=== PATIENT | female | born 1955 | race Caucasian/White ===

== ENCOUNTER 2019-03-15 19:50 | Inpatient (IN) ==
[2019-03-15] MEDS ORDERED: IPRATROPIUM/ALBUTEROL 3 ML AMPUL.NEB NEB ONE (20:15)
[2019-03-15] MEDS ORDERED: 0.9 % SODIUM CHLORIDE 500 ML IV ONE (20:15)
--- NOTE | 2019-03-15 20:19 | Emergency Department Note ---
General Adult HPI - General Chief complaint: Anxiety Stated complaint: withdrawl from ETOH Time Seen by Provider: 03/15/19 20:02 Source: patient Mode of arrival: wheelchair Limitations: no limitations - History of Present Illness HPI Narrative: 63-year-old female patient brought in the emergency department via ambulance requesting help to stop drinking alcohol. Patient admits to a longstanding history of alcoholism. She has a hard time quantitating how much alcohol she drinks during the day. She recently finished 1/5 of whiskey last night. She is unsure when her actual last drink of alcohol was. She answers affirmative to all 4 CAGE questions. She denies recent illness, fevers, sweats, chills. She admits to sinus congestion and runny nose. She denies productive cough. She admits to shortness of breath and a diagnosis of COPD. She has used a nebulizer in the past. She quit smoking approximately 6 years ago. She denies retrosternal chest pain or palpitations. She admits to moderate abdominal pain. She denies nausea or vomiting. She admits to fecal incontinence today. She denies hematemesis, hematochezia, or hematuria. She denies dysuria. She admits to generalized anxiousness. She denies focal weakness. A review of her active problems shows the following: Gastritis, borderline diabetes, history of cataracts, history of ERCP, history of cholecystectomy, hepatitis C, tubular adenoma of colon, GERD, hyperlipidemia, history of tobacco use, polymyalgia rheumatica, hypertension, allergic rhinitis, COPD, and alcohol abuse. - Related Data Home Medications Medication Instructions Recorded Confirmed Aspirin [Alona Chewable Aspirin] 81 mg PO QDAY 10/05/14 10/15/18 budesonide-formoterol HFA 160 1 puff INHALATION Q12H g 06/18/18 10/15/18 mcg-4.5 mcg/actuation aerosol inhaler metformin 850 mg tablet 850 mg PO QPM tab 06/18/18 10/15/18 pantoprazole 40 mg tablet,delayed 40 mg PO QDAY 10/29/18 10/29/18 release Previous Rx's Medication Instructions Recorded ipratropium-albuterol 0.5 mg-3 3 ml INHALATION Q6H PRN #90 ml 08/15/17 mg(2.5 mg base)/3 mL nebulization soln varicella-zoster [id number] (PF) 50 0.5 ml IM ONCE #1 each 06/18/18 mcg/0.5 mL IM francisco j renato Sucralfate [Carafate] 1 gm PO 1HRACHS #60 tab 06/29/18 losartan 100 mg tablet 50 mg PO QDAY 90 Days #45 tab 09/12/18 amlodipine 5 mg tablet 5 mg PO QDAY 90 Days #90 tab 10/07/18 sertraline 50 mg tablet 50 mg PO QDAY #30 tab 10/15/18 ipratropium 20 mcg-albuterol 100 1 puff INHALATION QID #15 g 12/03/18 mcg/actuation mist for inhalation Ventolin HFA 90 mcg/actuation 2 puff INHALATION Q6H PRN #8 g NS 12/27/18 aerosol inhaler montelukast 10 mg tablet 10 mg PO QPM #90 tab 12/31/18 Allergies Allergy/AdvReac Type Severity Reaction Status Date / Time lisinopril Allergy Unknown Swelling Verified 10/15/18 13:19 of Lip/Tongue/Throat lorazepam Allergy Unknown aggressive Verified 10/15/18 13:19 gabapentin AdvReac Intermediate Dizziness Verified 10/15/18 13:19 Review of Systems All systems ED: reviewed and negative except as stated. 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 Patient is in obvious respiratory distress with tripod position and pursed lip breathing.) Head: atraumatic, normocephalic Eye: Present: normal appearance, PERRL, EOMI. Absent: scleral icterus, conjunctival injection, nystagmus ENT: Present: normal oropharynx, mucous membranes moist Neck: Present: trachea midline. Absent: lymphadenopathy, thyromegaly Chest: Present: symmetric chest wall rise Respiratory: Present: respiratory distress, accessory muscle use, prolonged expiratory phase, decreased breath sounds, other (Patient tachypneic with pursed lip breathing. Oxygen saturations 94% on 6 L of oxygen via nasal cannula.). Absent: rales/crackles, wheezes Cardiovascular: Present: normal rhythm, tachycardia, other (Worsening shortness of breath with the patient lay supine.). Absent: systolic murmur, diastolic murmur Abdominal: Present: soft, tenderness, guarding, hyperactive bowel sounds. Absent: distention, rebound, rigidity, organomegaly, mass Abdominal tenderness: Present: RUQ, moderate Extremities: Present: normal inspection, full ROM. Absent: normal capillary r efill (Capillary refill), pedal edema, calf tenderness Back: Present: full ROM. Absent: tenderness Neurological: Present: alert, oriented X3, normal gait, reflexes normal, other. Absent: motor sensory deficit Psychiatric: Present: agitated, anxious Skin: Present: cool, dry, pallor Course Course Narrative: Patient was brought into the emergency department and a history and physical exam was performed. Patient is in obvious respiratory distress. She was given DuoNeb treatment x1. Laboratory studies were drawn including VBG. Two-view chest x-ray was obtained and reviewed. Ultrasound of her abdomen with focus on the right upper quadrant was ordered and reviewed. Patient was given normal saline 500 mL as a bolus. A review of her laboratory studies show the following: CBC 0.1, RBC 4.11, hemoglobin 9.8, hematocrit 37.0, granulocyte percent 85.2, granulocyte #11.2. CMP chloride 93, CO2 35, all others within normal limits. Lipase 11. Venous blood gas showing pH 7.24, PCO2 103, PO2 47, HCO3 43.1, total CO2 46.3, O2 saturation 78.9. Lactic acid 1.2. Blood alcohol less than 0.010. Chest x-ray showed ongoing COPD changes and flattened diaph ragm. No acute pulmonary infiltrate was noted. Ultrasound of the right upper quadrant showed no cirrhotic changes to her liver. After reviewing all the data an ABG was ordered. BiPAP at 20/5 cm H2O was ordered. ABG results shows pH 7.31, PCO2 92, PO2 90, HCO3 46.3. At shift change I discussed the patient's case with my collaborating physician (Dr. Winters). At this time patient is suffering considerable COPD exacerbation and and is likely going to require hospitalization. Dr. Winters is assumed patient care at this point. He will discussed the case with the hospitalist and likely the patient admitted this evening. I am going to order a sedative prior to the BiPAP being started. Patient was given diphenhydramine 25 mg IVP prior to BiPAP. All further treatment decisions and modalities will be carried out by Dr. Winters. Vital Signs Temperature 96.9 F L 03/15/19 19:51 Pulse Rate 120 H 03/15/19 19:51 Respiratory Rate 18 03/15/19 19:51 Blood Pressure 140/80 03/15/19 19:51 Pulse Oximetry (%) 94 03/15/19 19:51 Temperature 96.9 F L 03/15/19 19:51 Pulse Rate 97 H 03/15/19 22:01 Respiratory Rate 20 03/15/19 20:47 Blood Pressure 158/71 03/15/19 22:01 Pulse Oximetry (%) 100 03/15/19 22:01 Medical Decision Making - Lab Data Lab results reviewed: Yes I reviewed the patient's lab results. Result diagrams: 03/15/19 20:25 03/15/19 20:25 Lab Results 03/15/19 03/15/19 03/15/19 Range/Units 20:25 20:25 20:25 WBC 13.1 H (4.5-11.0) K/mcL RBC 4.11 (4.00-5.20) M/mcL Hgb 11.8 L (12.0-15.0) g/dL Hct 37.0 (36.0-48.0) % MCV 90.0 (80.0-100.0) fL MCH 28.8 (26.0-34.0) pg MCHC 32.0 (31.0-36.0) g/dL RDW 14.3 (11.5-14.5) % Plt Count 335 (140-440) K/mcL MPV 7.7 (7.4-10.4) fL Gran % 85.2 H (38.0-78.0) % Lymph % (Auto) 9.4 L (15.5-49.0) % Baker % (Auto) 4.9 (1.0-12.0) % Eos % (Auto) 0.2 (0.0-7.0) % Baso % (Auto) 0.3 (0.0-2.0) % Gran # 11.2 H (1.8-8.0) K/mcL Lymph # (Auto) 1.2 L (1.5-4.8) K/mcL Baker # (Auto) 0.6 (0.1-0.9) K/mcL Eos # (Auto) 0 (0.0-0.7) K/mcL Baso # (Auto) 0 (0.0-0.3) K/mcL Patient Temperature ABG pH ABG pH (Temp Correct) ABG pCO2 ABG pCO2 (Temp Corrct ABG pO2 ABG pO2 (Temp Correct ABG HCO3 ABG Total CO2 ABG O2 Saturation ABG Base Excess ABG Methemoglobin VBG pH (7.32-7.42) U VBG pCO2 (41.0-51.0) mmHg VBG pO2 (25-40) mmHg VBG HCO3 (24.0-28.0) mmol/L VBG Total CO2 (25.0-29.0) mmol/L VBG O2 Saturation (40.0-70.0) % VBG Base Excess (-2.0-2.0) VBG Lactic Acid (0.5-2.0) mmol/L Carboxyhemoglobin Total Hemoglobin Respiration Rate O2 Delivery Method O2 Delivery Level Vent Mode FiO2 Tidal Volume PEEP Sodium 142 (133-145) mmol/L Potassium 5.0 (3.3-5.1) mmol/L Chloride 93 L (96-108) mmol/L Carbon Dioxide 35 H (22-30) mmol/L Anion Gap 14.0 (8-16) BUN 23 (8-23) mg/dl Creatinine 0.6 (0.6-1.1) mg/dl GFR Calculation 96 Glucose 85 (70-105) mg/dL Calcium 9.0 (8.6-10.4) mg/dl Total Bilirubin 0.2 (0.0-1.0) mg/dL AST 28 (0-37) U/l ALT 22 (0-40) U/l Alkaline Phosphatase 71 (39-117) U/L Total Protein 7.1 (5.9-8.4) gm/dL Albumin 3.9 (3.2-5.2) gm/dL Globulin 3.2 (2.2-3.7) gm/dL Albumin/Globulin Ratio 1.2 (1.0-2.3) Lipase 11 (7-60) U/L Procalcitonin < 0.05 (<0.10) ng/mL Ethyl Alcohol (<0.010) gm/dl 03/15/19 03/15/19 03/15/19 Range/Units 20:25 20:25 20:35 WBC (4.5-11.0) K/mcL RBC (4.00-5.20) M/mcL Hgb (12.0-15.0) g/dL Hct (36.0-48.0) % MCV (80.0-100.0) fL MCH (26.0-34.0) pg MCHC (31.0-36.0) g/dL RDW (11.5-14.5) % Plt Count (140-440) K/mcL MPV (7.4-10.4) fL Gran % (38.0-78.0) % Lymph % (Auto) (15.5-49.0) % Baker % (Auto) (1.0-12.0) % Eos % (Auto) (0.0-7.0) % Baso % (Auto) (0.0-2.0) % Gran # (1.8-8.0) K/mcL Lymph # (Auto) (1.5-4.8) K/mcL Baker # (Auto) (0.1-0.9) K/mcL Eos # (Auto) (0.0-0.7) K/mcL Baso # (Auto) (0.0-0.3) K/mcL Patient Temperature Not Reportable ABG pH TNP ABG pH (Temp Correct) Not Reportable ABG pCO2 TNP ABG pCO2 (Temp Corrct Not Reportable ABG pO2 TNP ABG pO2 (Temp Correct Not Reportable ABG HCO3 TNP ABG Total CO2 TNP ABG O2 Saturation TNP ABG Base Excess TNP ABG Methemoglobin TNP VBG pH (7.32-7.42) U VBG pCO2 (41.0-51.0) mmHg VBG pO2 (25-40) mmHg VBG HCO3 (24.0-28.0) mmol/L VBG Total CO2 (25.0-29.0) mmol/L VBG O2 Saturation (40.0-70.0) % VBG Base Excess (-2.0-2.0) VBG Lactic Acid 1.2 (0.5-2.0) mmol/L Carboxyhemoglobin TNP Total Hemoglobin TNP Respiration Rate Not Reportable O2 Delivery Method Not Reportable O2 Delivery Level Not Reportable Vent Mode Not Reportable FiO2 Not Reportable Tidal Volume Not Reportable PEEP Not Reportable Sodium (133-145) mmol/L Potassium (3.3-5.1) mmol/L Chloride (96-108) mmol/L Carbon Dioxide (22-30) mmol/L Anion Gap (8-16) BUN (8-23) mg/dl Creatinine (0.6-1.1) mg/dl GFR Calculation Glucose (70-105) mg/dL Calcium (8.6-10.4) mg/dl Total Bilirubin (0.0-1.0) mg/dL AST (0-37) U/l ALT (0-40) U/l Alkaline Phosphatase (39-117) U/L Total Protein (5.9-8.4) gm/dL Albumin (3.2-5.2) gm/dL Globulin (2.2-3.7) gm/dL Albumin/Globulin Ratio (1.0-2.3) Lipase (7-60) U/L Procalcitonin (<0.10) ng/mL Ethyl Alcohol < 0.010 (<0.010) gm/dl 03/15/19 Range/Units 21:15 WBC (4.5-11.0) K/mcL RBC (4.00-5.20) M/mcL Hgb (12.0-15.0) g/dL Hct (36.0-48.0) % MCV (80.0-100.0) fL MCH (26.0-34.0) pg MCHC (31.0-36.0) g/dL RDW (11.5-14.5) % Plt Count (140-440) K/mcL MPV (7.4-10.4) fL Gran % (38.0-78.0) % Lymph % (Auto) (15.5-49.0) % Baker % (Auto) (1.0-12.0) % Eos % (Auto) (0.0-7.0) % Baso % (Auto) (0.0-2.0) % Gran # (1.8-8.0) K/mcL Lymph # (Auto) (1.5-4.8) K/mcL Baker # (Auto) (0.1-0.9) K/mcL Eos # (Auto) (0.0-0.7) K/mcL Baso # (Auto) (0.0-0.3) K/mcL Patient Temperature ABG pH ABG pH (Temp Correct) ABG pCO2 ABG pCO2 (Temp Corrct ABG pO2 ABG pO2 (Temp Correct ABG HCO3 ABG Total CO2 ABG O2 Saturation ABG Base Excess ABG Methemoglobin 0.3 L VBG pH 7.24 L (7.32-7.42) U VBG pCO2 103.0 H* (41.0-51.0) mmHg VBG pO2 47 H (25-40) mmHg VBG HCO3 43.1 H* (24.0-28.0) mmol/L VBG Total CO2 46.3 H* (25.0-29.0) mmol/L VBG O2 Saturation 78.9 H (40.0-70.0) % VBG Base Excess 12.1 H (-2.0-2.0) VBG Lactic Acid (0.5-2.0) mmol/L Carboxyhemoglobin 3.3 H Total Hemoglobin 11.6 L Respiration Rate O2 Delivery Method O2 Delivery Level Not Reportable Vent Mode FiO2 Tidal Volume PEEP Sodium (133-145) mmol/L Potassium (3.3-5.1) mmol/L Chloride (96-108) mmol/L Carbon Dioxide (22-30) mmol/L Anion Gap (8-16) BUN (8-23) mg/dl Creatinine (0.6-1.1) mg/dl GFR Calculation Glucose (70-105) mg/dL Calcium (8.6-10.4) mg/dl Total Bilirubin (0.0-1.0) mg/dL AST (0-37) U/l ALT (0-40) U/l Alkaline Phosphatase (39-117) U/L Total Protein (5.9-8.4) gm/dL Albumin (3.2-5.2) gm/dL Globulin (2.2-3.7) gm/dL Albumin/Globulin Ratio (1.0-2.3) Lipase (7-60) U/L Procalcitonin (<0.10) ng/mL Ethyl Alcohol (<0.010) gm/dl - Radiology Data Radiology results reviewed: Yes I reviewed the patient's radiology results. 2 view chest x-ray showing flattened diaphragms and ongoing chronic COPD changes. No acute pulmonary infiltrates were identified. This will be over read by radiologist the next 12-24 hours. Limited ultrasound of the abdomen focusing on the liver shows no cirrhotic changes. This will be over read by radiologist next 12-24 hours. - EKG Data EKG #1 EKG attestation: Yes I reviewed and interpreted this EKG., Yes There are no EKG findings of acute coronary syndrome, Yes This EKG will be read by rolled seat trimmer Disposition Pt seen by COMMODITIES TRADER/PA only: No (Dr. Winters) Clinical Impression: COPD with exacerbation, Acute respiratory acidosis, Alcohol abuse Disposition: Still a Patient Condition: Serious Additional Instructions: At this time patient care is going to be transferred to my collaborating physician (Dr. Winters). All further treatment decisions and modalities will be carried out by Dr. Winters. Referrals: Vic Ayala PA-C [Primary Care Provider] -
[2019-03-15 21:25] LABS: Basophils # (Auto) 0 K/mcL (0.0-0.3); Basophils % (Auto) 0.3 % (0.0-2.0); Eosinophils # (Auto) 0 K/mcL (0.0-0.7); Eosinophils % (Auto) 0.2 % (0.0-7.0); Granulocytes % (Auto) 85.2 % (38.0-78.0); Hemoglobin 11.8 g/dL (12.0-15.0); Lymphocytes # (Auto) 1.2 K/mcL (1.5-4.8); Lymphocytes % (Auto) 9.4 % (15.5-49.0); Mean Platelet Volume 7.7 fL (7.4-10.4); Monocytes # (Auto) 0.6 K/mcL (0.1-0.9); Monocytes % (Auto) 4.9 % (1.0-12.0); Platelet Count 335 K/mcL (140-440); RBC 4.11 M/mcL (4.00-5.20); Red Cell Distribution Width 14.3 % (11.5-14.5); WBC 13.1 K/mcL (4.5-11.0)
[2019-03-15 21:36] LABS: Alcohol, Blood < 10.0 mg/dL (<10); Alcohol,Blood < 0.010 gm/dl (<0.010)
[2019-03-15 21:40] LABS: ABG Methemoglobin 0.3 % (0.4-1.5); Total Hemoglobin 11.6 gm/dL (12.0-15.0); VBG Base Excess 12.1 (-2.0-2.0); VBG HCO3 43.1 mmol/L (24.0-28.0); VBG Oxygen Saturation 78.9 % (40.0-70.0); VBG PH 7.24 U (7.32-7.42); VBG PO2 47 mmHg (25-40); VBG Total CO2 46.3 mmol/L (25.0-29.0)
[2019-03-15 21:42] LABS: ALT/SGPT 22 U/l (0-40); AST/SGOT 28 U/l (0-37); Albumin 3.9 gm/dL (3.2-5.2); Albumin/Globulin Ratio 1.2 (1.0-2.3); Alkaline Phosphatase 71 U/L (39-117); Bilirubin,Total 0.2 mg/dL (0.0-1.0); Blood Urea Nitrogen 23 mg/dl (8-23); Carbon Dioxide 35 mmol/L (22-30); Chloride 93 mmol/L (96-108); Globulin 3.2 gm/dL (2.2-3.7); Glomerular Filtration Rate 96; Glucose 85 mg/dL (70-105)
[2019-03-15] MEDS ORDERED: methylPREDNISolone SOD SUCC 125 MG/2 ML VIAL IV ONE (22:04)
[2019-03-15] MEDS ORDERED: diphenhydrAMINE 50 MG/ML VIAL IV ONE (22:29)
--- NOTE | 2019-03-15 22:46 | Emergency Department Note ---
General Adult HPI - General Chief complaint: Anxiety Stated complaint: withdrawl from ETOH Time Seen by Provider: 03/15/19 20:02 Source: patient Mode of arrival: wheelchair Limitations: no limitations - Related Data Home Medications Medication Instructions Recorded Confirmed Aspirin [Alona Chewable Aspirin] 81 mg PO QDAY 10/05/14 10/15/18 budesonide-formoterol HFA 160 1 puff INHALATION Q12H g 06/18/18 10/15/18 mcg-4.5 mcg/actuation aerosol inhaler metformin 850 mg tablet 850 mg PO QPM tab 06/18/18 10/15/18 pantoprazole 40 mg tablet,delayed 40 mg PO QDAY 10/29/18 10/29/18 release Previous Rx's Medication Instructions Recorded ipratropium-albuterol 0.5 mg-3 3 ml INHALATION Q6H PRN #90 ml 08/15/17 mg(2.5 mg base)/3 mL nebulization soln varicella-zoster [id number] (PF) 50 0.5 ml IM ONCE #1 each 06/18/18 mcg/0.5 mL IM susp, kit Sucralfate [Carafate] 1 gm PO 1HRACHS #60 tab 06/29/18 losartan 100 mg tablet 50 mg PO QDAY 90 Days #45 tab 09/12/18 amlodipine 5 mg tablet 5 mg PO QDAY 90 Days #90 tab 10/07/18 sertraline 50 mg tablet 50 mg PO QDAY #30 tab 10/15/18 ipratropium 20 mcg-albuterol 100 1 puff INHALATION QID #15 g 12/03/18 mcg/actuation mist for inhalation Ventolin HFA 90 mcg/actuation 2 puff INHALATION Q6H PRN #8 g NS 12/27/18 aerosol inhaler montelukast 10 mg tablet 10 mg PO QPM #90 tab 12/31/18 Allergies Allergy/AdvReac Type Severity Reaction Status Date / Time lisinopril Allergy Unknown Swelling Verified 10/15/18 13:19 of Lip/Tongue/Throat lorazepam Allergy Unknown aggressive Verified 10/15/18 13:19 gabapentin AdvReac Intermediate Dizziness Verified 10/15/18 13:19 Past Medical History - Past Medical History Medical history: Reports: COPD (secondary to smoking) Psychiatric history: Reports: no psych 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 Patient is in obvious respiratory distress with tripod position and pursed lip breathing.) Course - Reevaluation(s) Reevaluation #1: Discussed hospital admission with our hospitalist up. He will be in to see the patient and write orders. Blood gas reviewed. It. She does have significant retention of CO2. She was started on breathing treatments, as well as Solu- Medrol as well as a BiPAP in our department. Vital Signs Temperature 96.9 F L 03/15/19 19:51 Pulse Rate 120 H 03/15/19 19:51 Respiratory Rate 18 03/15/19 19:51 Blood Pressure 140/80 03/15/19 19:51 Pulse Oximetry (%) 94 03/15/19 19:51 Temperature 96.9 F L 03/15/19 19:51 Pulse Rate 97 H 03/15/19 22:01 Respiratory Rate 20 03/15/19 20:47 Blood Pressure 158/71 03/15/19 22:01 Pulse Oximetry (%) 100 03/15/19 22:01 Medical Decision Making - [facility] Narrative Medical decision making narrative: Impression is COPD exacerbation. Alcohol withdrawal symptoms. - Lab Data Lab results reviewed: Yes I reviewed the patient's lab results. Result diagrams: 03/15/19 20:25 03/15/19 20:25 Lab Results 03/15/19 03/15/19 03/15/19 Range/Units 20:25 20:25 20:25 WBC 13.1 H (4.5-11.0) K/mcL RBC 4.11 (4.00-5.20) M/mcL Hgb 11.8 L (12.0-15.0) g/dL Hct 37.0 (36.0-48.0) % MCV 90.0 (80.0-100.0) fL MCH 28.8 (26.0-34.0) pg MCHC 32.0 (31.0-36.0) g/dL RDW 14.3 (11.5-14.5) % Plt Count 335 (140-440) K/mcL MPV 7.7 (7.4-10.4) fL Gran % 85.2 H (38.0-78.0) % Lymph % (Auto) 9.4 L (15.5-49.0) % [place] % (Auto) 4.9 (1.0-12.0) % Eos % (Auto) 0.2 (0.0-7.0) % Baso % (Auto) 0.3 (0.0-2.0) % Gran # 11.2 H (1.8-8.0) K/mcL Lymph # (Auto) 1.2 L (1.5-4.8) K/mcL [place] # (Auto) 0.6 (0.1-0.9) K/mcL Eos # (Auto) 0 (0.0-0.7) K/mcL Baso # (Auto) 0 (0.0-0.3) K/mcL Patient Temperature ABG pH ABG pH (Temp Correct) ABG pCO2 ABG pCO2 (Temp Corrct ABG pO2 ABG pO2 (Temp Correct ABG HCO3 ABG Total CO2 ABG O2 Saturation ABG Base Excess ABG Methemoglobin VBG pH (7.32-7.42) U VBG pCO2 (41.0-51.0) mmHg VBG pO2 (25-40) mmHg VBG HCO3 (24.0-28.0) mmol/L VBG Total CO2 (25.0-29.0) mmol/L VBG O2 Saturation (40.0-70.0) % VBG Base Excess (-2.0-2.0) VBG Lactic Acid (0.5-2.0) mmol/L Carboxyhemoglobin Total Hemoglobin Respiration Rate O2 Delivery Method O2 Delivery Level Vent Mode FiO2 Tidal Volume PEEP Sodium 142 (133-145) mmol/L Potassium 5.0 (3.3-5.1) mmol/L Chloride 93 L (96-108) mmol/L Carbon Dioxide 35 H (22-30) mmol/L Anion Gap 14.0 (8-16) BUN 23 (8-23) mg/dl Creatinine 0.6 (0.6-1.1) mg/dl GFR Calculation 96 Glucose 85 (70-105) mg/dL Calcium 9.0 (8.6-10.4) mg/dl Total Bilirubin 0.2 (0.0-1.0) mg/dL AST 28 (0-37) U/l ALT 22 (0-40) U/l Alkaline Phosphatase 71 (39-117) U/L Total Protein 7.1 (5.9-8.4) gm/dL Albumin 3.9 (3.2-5.2) gm/dL Globulin 3.2 (2.2-3.7) gm/dL Albumin/Globulin Ratio 1.2 (1.0-2.3) Lipase 11 (7-60) U/L Procalcitonin < 0.05 (<0.10) ng/mL Ethyl Alcohol (<0.010) gm/dl 03/15/19 03/15/19 03/15/19 Range/Units 20:25 20:25 20:35 WBC (4.5-11.0) K/mcL RBC (4.00-5.20) M/mcL Hgb (12.0-15.0) g/dL Hct (36.0-48.0) % MCV (80.0-100.0) fL MCH (26.0-34.0) pg MCHC (31.0-36.0) g/dL RDW (11.5-14.5) % Plt Count (140-440) K/mcL MPV (7.4-10.4) fL Gran % (38.0-78.0) % Lymph % (Auto) (15.5-49.0) % [place] % (Auto) (1.0-12.0) % Eos % (Auto) (0.0-7.0) % Baso % (Auto) (0.0-2.0) % Gran # (1.8-8.0) K/mcL Lymph # (Auto) (1.5-4.8) K/mcL [place] # (Auto) (0.1-0.9) K/mcL Eos # (Auto) (0.0-0.7) K/mcL Baso # (Auto) (0.0-0.3) K/mcL Patient Temperature Not Reportable ABG pH TNP ABG pH (Temp Correct) Not Reportable ABG pCO2 TNP ABG pCO2 (Temp Corrct Not Reportable ABG pO2 TNP ABG pO2 (Temp Correct Not Reportable ABG HCO3 TNP ABG Total CO2 TNP ABG O2 Saturation TNP ABG Base Excess TNP ABG Methemoglobin TNP VBG pH (7.32-7.42) U VBG pCO2 (41.0-51.0) mmHg VBG pO2 (25-40) mmHg VBG HCO3 (24.0-28.0) mmol/L VBG Total CO2 (25.0-29.0) mmol/L VBG O2 Saturation (40.0-70.0) % VBG Base Excess (-2.0-2.0) VBG Lactic Acid 1.2 (0.5-2.0) mmol/L Carboxyhemoglobin TNP Total Hemoglobin TNP Respiration Rate Not Reportable O2 Delivery Method Not Reportable O2 Delivery Level Not Reportable Vent Mode Not Reportable FiO2 Not Reportable Tidal Volume Not Reportable PEEP Not Reportable Sodium (133-145) mmol/L Potassium (3.3-5.1) mmol/L Chloride (96-108) mmol/L Carbon Dioxide (22-30) mmol/L Anion Gap (8-16) BUN (8-23) mg/dl Creatinine (0.6-1.1) mg/dl GFR Calculation Glucose (70-105) mg/dL Calcium (8.6-10.4) mg/dl Total Bilirubin (0.0-1.0) mg/dL AST (0-37) U/l ALT (0-40) U/l Alkaline Phosphatase (39-117) U/L Total Protein (5.9-8.4) gm/dL Albumin (3.2-5.2) gm/dL Globulin (2.2-3.7) gm/dL Albumin/Globulin Ratio (1.0-2.3) Lipase (7-60) U/L Procalcitonin (<0.10) ng/mL Ethyl Alcohol < 0.010 (<0.010) gm/dl 03/15/19 Range/Units 21:15 WBC (4.5-11.0) K/mcL RBC (4.00-5.20) M/mcL Hgb (12.0-15.0) g/dL Hct (36.0-48.0) % MCV (80.0-100.0) fL MCH (26.0-34.0) pg MCHC (31.0-36.0) g/dL RDW (11.5-14.5) % Plt Count (140-440) K/mcL MPV (7.4-10.4) fL Gran % (38.0-78.0) % Lymph % (Auto) (15.5-49.0) % [place] % (Auto) (1.0-12.0) % Eos % (Auto) (0.0-7.0) % Baso % (Auto) (0.0-2.0) % Gran # (1.8-8.0) K/mcL Lymph # (Auto) (1.5-4.8) K/mcL [place] # (Auto) (0.1-0.9) K/mcL Eos # (Auto) (0.0-0.7) K/mcL Baso # (Auto) (0.0-0.3) K/mcL Patient Temperature ABG pH ABG pH (Temp Correct) ABG pCO2 ABG pCO2 (Temp Corrct ABG pO2 ABG pO2 (Temp Correct ABG HCO3 ABG Total CO2 ABG O2 Saturation ABG Base Excess ABG Methemoglobin 0.3 L VBG pH 7.24 L (7.32-7.42) U VBG pCO2 103.0 H* (41.0-51.0) mmHg VBG pO2 47 H (25-40) mmHg VBG HCO3 43.1 H* (24.0-28.0) mmol/L VBG Total CO2 46.3 H* (25.0-29.0) mmol/L VBG O2 Saturation 78.9 H (40.0-70.0) % VBG Base Excess 12.1 H (-2.0-2.0) VBG Lactic Acid (0.5-2.0) mmol/L Carboxyhemoglobin 3.3 H Total Hemoglobin 11.6 L Respiration Rate O2 Delivery Method O2 Delivery Level Not Reportable Vent Mode FiO2 Tidal Volume PEEP Sodium (133-145) mmol/L Potassium (3.3-5.1) mmol/L Chloride (96-108) mmol/L Carbon Dioxide (22-30) mmol/L Anion Gap (8-16) BUN (8-23) mg/dl Creatinine (0.6-1.1) mg/dl GFR Calculation Glucose (70-105) mg/dL Calcium (8.6-10.4) mg/dl Total Bilirubin (0.0-1.0) mg/dL AST (0-37) U/l ALT (0-40) U/l Alkaline Phosphatase (39-117) U/L Total Protein (5.9-8.4) gm/dL Albumin (3.2-5.2) gm/dL Globulin (2.2-3.7) gm/dL Albumin/Globulin Ratio (1.0-2.3) Lipase (7-60) U/L Procalcitonin (<0.10) ng/mL Ethyl Alcohol (<0.010) gm/dl - Radiology Data Radiology results reviewed: Yes I reviewed the patient's radiology results. Disposition Pt seen by PALEOLOGY PROFESSOR/PA only: No Clinical Impression: COPD with exacerbation, Acute respiratory acidosis, Alcohol abuse Disposition: Xfer As Inpt ([facility]) Condition: Serious Additional Instructions: At this time patient care is going to be transferred to my collaborating physician (Dr. Winters). All further treatment decisions and modalities will be carried out by Dr. Winters. Referrals: Vic Ayala PA-C [Primary Care Provider] -
[2019-03-15] MEDS ORDERED: HALOPERIDOL LACTATE 5 MG/ML VIAL IV ONE (23:08)
[2019-03-15] MEDS ORDERED: HALOPERIDOL LACTATE 5 MG/ML VIAL IV PRN (23:24)
--- NOTE | 2019-03-15 23:27 | Internal Med History&Physical ---
Medical - H&P: HPI Patient information: Note initiated : 03/15/19 at 11:27 pm Service Date, if different from initiated Date: [] Patient: Lexus Venegas a 63 y/o F admitted on for withdrawl from ETOH. Chief Complaint: [] History of present illness: Ms. Venegas is a 63 year old F This is a 63-year-old female with a history of alcohol dependence, COPD oxygen dependent, diabetes, GERD, chronic hepatitis C hyperlipidemia hypertension polymyalgia rheumatica was brought to the ER because of worsening shortness of breath. She was evaluated in the ER and initial evaluation showed pH of 7.25 with a PCO2 of 103 with worsening wheezing and shortness of breath and she was diagnosed having hypercapnic respiratory failure probably due to COPD exacerbation. No underlying infection identified she was given antibiotics Solu-Medrol and put on BiPAP. Patient was refusing to wear the BiPAP because of anxiety and and we have to give her Haldol she is allergic to lorazepam and she refused Benadryl. - Constitutional Constitutional: Present: anorexia, daytime sleepiness, fatigue. Absent: excessive sweating, fever(s), frequent falls - Cardiovascular Cardiovascular: Absent: acrocyanosis, chest pain, claudication, diaphoresis - Respiratory Respiratory: Present: cough, dyspnea, dyspnea on exertion, wheezing, snoring, chest congestion. Absent: hemoptysis - Gastrointestinal Gastrointestinal: Absent: abdominal pain, constipation, diarrhea, dyspepsia - Neurological Neurological: Absent: disequilibrium, dizziness, focal weakness, frequent falls - Psychiatric Psychiatric: Present: behavioral changes. Absent: auditory hallucinations, hallucinations Medical - H&P: Meds Home Medications Medication Instructions Recorded Confirmed Type Aspirin [Alona Chewable Aspirin] 81 mg PO QDAY 10/05/14 03/16/19 History ipratropium-albuterol 0.5 mg-3 3 ml INHALATION Q6H PRN #90 ml 08/15/17 03/16/19 Rx mg(2.5 mg base)/3 mL nebulization soln budesonide-formoterol HFA 160 1 puff INHALATION Q12H g 06/18/18 03/16/19 History mcg-4.5 mcg/actuation aerosol inhaler metformin 850 mg tablet 850 mg PO QPM tab 06/18/18 03/16/19 History Sucralfate [Carafate] 1 gm PO 1HRACHS #60 tab 06/29/18 03/16/19 Rx losartan 100 mg tablet 50 mg PO QDAY 90 Days #45 tab 09/12/18 03/16/19 Rx amlodipine 5 mg tablet 5 mg PO QDAY 90 Days #90 tab 10/07/18 03/16/19 Rx pantoprazole 40 mg tablet,delayed 40 mg PO QDAY 10/29/18 03/16/19 History release ipratropium 20 mcg-albuterol 100 1 puff INHALATION QID #15 g 12/03/18 03/16/19 Rx mcg/actuation mist for inhalation Ventolin HFA 90 mcg/actuation 2 puff INHALATION Q6H PRN #8 g NS 12/27/18 03/16/19 Rx aerosol inhaler montelukast 10 mg tablet 10 mg PO QPM #90 tab 12/31/18 03/16/19 Rx Allergies Allergy/AdvReac Type Severity Reaction Status Date / Time lisinopril Allergy Severe Swelling Verified 03/16/19 07:11 of Lip/Tongue/Throat gabapentin AdvReac Mild Dizziness Verified 03/16/19 07:11 lorazepam AdvReac Mild aggressive Verified 03/16/19 07:11 Medical - H&P: Exam - Constitutional Vitals: Temp Pulse Resp BP Pulse Ox 96.9 F L 110 H 23 H 125/80 100 03/15/19 19:51 03/15/19 22:46 03/15/19 22:46 03/15/19 22:46 03/15/19 22:46 General appearance: disheveled, severe distress - Head Head exam: Present: atraumatic, normal inspection - Expanded Head Exam Head exam: Absent: abrasion, hematoma, laceration - Eye Eye exam: Present: conjunctival injection. Absent: nystagmus, periorbital swelling - ENT ENT exam: Present: mucous membranes dry, normal exam - Expanded ENT Exam Ear exam: Absent: auricular hematoma, auricular trauma, external canal tenderness - Neck Neck exam: Present: full ROM. Absent: lymphadenopathy (Alcohol: None) - Respiratory Respiratory exam: Present: accessory muscle use, decreased breath sounds, prolonged expiratory phase, respiratory distress, rhonchi, wheezes - Cardiovascular Cardiovascular exam: Present: normal rate and rhythm - GI/Abdominal GI/Abdominal exam: Present: normal bowel sounds, soft, distended - Neurological Exam Neurological exam: Present: alert, oriented X3, reflexes normal. Absent: abnormal gait, motor sensory deficit Medical - H&P: Reslt - Labs CBC & Chem 7: 03/16/19 03:50 03/16/19 03:35 Labs: Short CBC 03/15/19 Range/Units 20:25 WBC 13.1 H (4.5-11.0) K/mcL Hgb 11.8 L (12.0-15.0) g/dL Hct 37.0 (36.0-48.0) % Plt Count 335 (140-440) K/mcL BMP 03/15/19 20:25 Sodium 142 Potassium 5.0 Chloride 93 L Carbon Dioxide 35 H BUN 23 Creatinine 0.6 Glucose 85 Calcium 9.0 Liver Function 03/15/19 Range/Units 20:25 Total Bilirubin 0.2 (0.0-1.0) mg/dL AST 28 (0-37) U/l ALT 22 (0-40) U/l Alkaline Phosphatase 71 (39-117) U/L Albumin 3.9 (3.2-5.2) gm/dL - ABG Interpretation ABG results: 03/15/19 03/15/19 20:25 21:15 ABG pH TNP ABG pCO2 TNP ABG pO2 TNP ABG HCO3 TNP ABG Total CO2 TNP ABG O2 Saturation TNP ABG Base Excess TNP ABG Methemoglobin TNP 0.3 L VBG pH 7.24 L VBG pCO2 103.0 H* VBG pO2 47 H VBG HCO3 43.1 H* VBG Total CO2 46.3 H* VBG O2 Saturation 78.9 H VBG Base Excess 12.1 H Medical - H&P: A/P - Narrative A/P Narrative: Acute hypoxic hypercapnic respiratory failure Probable COPD exacerbation We will start her on Solu-Medrol 60 q. 6 hourly DuoNebs every 4 hours and as needed We will use Haldol for anxiety every 4 hours BiPAP until her PCO2 improves She probably has chronic CO2 retention bicarb level is around 40 Discussed with the patient and she agreed to use of BiPAP Alcoholism and potential withdrawal We will watch her for any withdrawal We will use Haldol for anxiety and agitation Patient refused lorazepam and Benadryl GERD Continue PPI Hypertension Monitor her blood pressure and restart home medication as needed DVT prophylaxis-subcu heparin CODE STATUS-full code Expected length of stay of at least 2 midnights Total critical care time spent 65 minutes
[2019-03-15] MEDS ORDERED: cefTRIAXone 2 GM in DEXTROSE 5% IN WATER 50 ML IV SCH (23:30)
[2019-03-16] MEDS ORDERED: cefTRIAXone 1 GM VIAL ONE (00:32)
[2019-03-16] MEDS: 0.9 % SODIUM CHLORIDE 1,000 ML IV SCH ×2 (01:15→15:00)
[2019-03-16] MEDS: AZITHROMYCIN 500 MG in DEXTROSE 5% IN WATER 250 ML IV SCH ×2 (01:45→16:51)
[2019-03-16] MEDS: methylPREDNISolone SOD SUCC 125 MG/2 ML VIAL IV SCH ×5 (01:52→23:02)
[2019-03-16 02:00] LABS: Hemoglobin A1C 5.2 % HGB (4.0-6.0)
[2019-03-16] MEDS ORDERED: hydrALAZINE 20 MG/ML VIAL IV PRN (03:00)
[2019-03-16] MEDS ORDERED: hydrALAZINE 20 MG/ML VIAL ONE (03:40)
[2019-03-16] MEDS ORDERED: IPRATROPIUM/ALBUTEROL 3 ML AMPUL.NEB NEB ONE (03:41)
[2019-03-16] MEDS: IPRATROPIUM/ALBUTEROL 3 ML AMPUL.NEB NEB SCH ×6 (03:50→22:39)
[2019-03-16 06:19] LABS: Hematocrit 36.7 % (36.0-48.0); Hemoglobin 11.5 g/dL (12.0-15.0); Mean Cell Volume 91.1 fL (80.0-100.0); Mean Corpuscular HGB Conc 31.5 g/dL (31.0-36.0); Mean Platelet Volume 8.3 fL (7.4-10.4); Platelet Count 328 K/mcL (140-440); RBC 4.03 M/mcL (4.00-5.20); Red Cell Distribution Width 14.3 % (11.5-14.5); WBC 12.5 K/mcL (4.5-11.0)
--- NOTE | 2019-03-16 06:25 | Ultrasound Report ---
CLINICAL INFORMATION: Right upper quadrant pain. History of alcoholism TECHNIQUE: Grayscale and color flow Doppler spectral imaging COMPARISON: None. FINDINGS: Previous cholecystectomy. No dilated bile ducts. Common bile duct measures 5 mm Liver is sonographically dense. No focal mass. Liver contour is smooth. There is no ascites. Visualized portions of the pancreas are negative. Right kidney measures 8.9 x 5.1 x 4.7 cm. No solid or cystic mass. No hydronephrosis. There is a calcification at the superior pole which appears to be separate from the right kidney. This may be within the right adrenal gland. Etiology is not certain. IMPRESSION: 1. Sonographically dense liver. No focal mass. Normal smooth liver contour without definite nodularity 2. Echogenic abnormality suggests calcification superior to the right kidney Interpreted and Authenticated by: Rishi Lemon 03/16/19
--- NOTE | 2019-03-16 06:27 | XRay Report ---
CLINICAL INFORMATION:History of COPD. Increasing dyspnea TECHNIQUE: PA and lateral upright chest x-ray COMPARISON: Previous chest x-rays dated 04/04/2018, 10/05/2014 FINDINGS:Changes consistent with COPD. There is hyperinflation. This is unchanged. No focal parenchymal infiltrate or mass. Heart size and vascularity are within normal limits. No pulmonary edema or pulmonary congestion. No evidence for pleural fluid IMPRESSION: 1. COPD 2. No acute abnormality. No focal parenchymal infiltrate. Interpreted and Authenticated by: Rishi Lemon 03/16/19
[2019-03-16] MEDS: 0.9 % SODIUM CHLORIDE 10 ML SYRINGE IV SCH ×3 (06:38→20:46)
[2019-03-16 06:45] LABS: ALT/SGPT 21 U/l (0-40); AST/SGOT 26 U/l (0-37); Albumin 4.2 gm/dL (3.2-5.2); Albumin/Globulin Ratio 1.3 (1.0-2.3); Alkaline Phosphatase 77 U/L (39-117); Bilirubin,Total 0.2 mg/dL (0.0-1.0); Blood Urea Nitrogen 25 mg/dl (8-23); Calcium 8.7 mg/dl (8.6-10.4); Carbon Dioxide 31 mmol/L (22-30); Globulin 3.2 gm/dL (2.2-3.7); Glomerular Filtration Rate 92; Glucose 200 mg/dL (70-105)
[2019-03-16 06:46] LABS: Chloride 94 mmol/L (96-108)
[2019-03-16 07:44] LABS: Band Neutrophils % 9 % (0-10); Basophilic Stippling OCC (NONE SEEN); Basophils % (Manual) 1 % (0-2); Lymphocytes % 5 % (15-49); Platelet Estimate NORMAL (NORMAL); RBC Morphology ABNORM (NORMAL); Segmented Neutrophils % 85 % (38-78)
[2019-03-16] MEDS: PANTOPRAZOLE 40 MG TABLET PO SCH (09:00)
[2019-03-16] MEDS: HEPARIN 5,000 UNIT/ML VIAL SQ SCH ×2 (09:00→20:45)
--- NOTE | 2019-03-16 10:53 | Internal Med Progress Note ---
Medical - PN: Subj Patient information: Note initiated : 03/16/19 at 10:52 am Service Date, if different from initiated Date: [] Patient: Lexus Venegas 63 y/o F admitted on 03/15/19 for withdrawl from ETOH. Chief Complaint: [] Interval history: Her mental status improving, PCO2 improved this morning to 75 from 103, she was using BiPAP overnight intermittently she was received Haldol for anxiety. We will keep the Haldol for anxiety she is allergic to lorazepam. She also has history of alcoholism and will monitor her for withdrawal and use Haldol as needed. Telemetry monitoring. Pertinent ROS: General-distress improved Respiratory-shortness of breath improved using BiPAP intermittently Cardiac-no chest pain no palpitations Abdomen-no diarrhea no constipation Neuro-confusion improved and agitation improved Musculoskeletal no new symptoms - Constitutional Vitals: Vital Signs Temp Pulse Resp BP Pulse Ox 97.7 F 99 H 18 137/86 100 03/16/19 08:01 03/16/19 10:04 03/16/19 10:04 03/16/19 09:01 03/16/19 10:04 Period Temp Pulse Resp BP Sys/[place] Pulse Ox Last 24 Hr 96.9 F-98.1 F 84-120 12-26 108-174/65-132 84-100 Intake and Output 03/15/19 03/16/19 03/16/19 21:59 05:59 13:59 Intake Total 500 430 Output Total 100 175 Balance 500 330 -175 Weight 145 lb 135 lb 1.6 oz Intake & Output: Intake & Output 03/15/19 03/16/19 03/16/19 21:59 05:59 13:59 Intake Total 500 430 Output Total 100 175 Balance 500 330 -175 Weight 145 lb 135 lb 1.6 oz Intake: IV 500 250 Sodium Chloride 0.9% 500 ml @ 500 Wide Open IV [facility] Rx#: [id number] Zithromax 500 mg In Dextrose 5% 250 in Water 250 ml @ 250 mls/hr IV Q24H [facility] Rx#:[id number] Oral 180 Output: Void Amount 100 175 Other: Urine Appearance Clear Urine Color Bright Yellow Urine Odor Strong Stool Size Small Stool Color Brown Stool Consistency Soft - Head Head exam: Present: atraumatic, normal inspection, normocephalic - Eye Eye exam: Absent: nystagmus Pupils: Absent: mydriatic - ENT ENT exam: Present: normal exam, normal oropharynx - Neck Neck exam: Present: normal inspection. Absent: lymphadenopathy, meningismus - Respiratory Respiratory exam: Present: decreased breath sounds, respiratory distress, wheezes - Cardiovascular Cardiovascular exam: Present: normal rate and rhythm. Absent: bradycardia, irregular rhythm - GI/Abdominal GI/Abdominal exam: Present: normal bowel sounds, soft. Absent: diminished bowel sounds - Neurological Exam Neurological exam: Present: alert, oriented X3, reflexes normal. Absent: altered, motor sensory deficit - Psychiatric Psychiatric exam: Present: anxious Medical - PN: Obj Da - Labs CBC & Chem 7: 03/16/19 03:50 03/16/19 03:35 Labs: Abnormal Lab Results 03/16/19 03/16/19 03/15/19 03:50 03:35 21:15 WBC 12.5 H Hgb 11.5 L Gran % Lymph % (Auto) Gran # Lymph # (Auto) Seg Neutrophils % 85 H Lymphocytes % 5 L RBC Morphology Abnorm A Basophilic Stippling Occ A ABG Methemoglobin 0.3 L VBG pH 7.24 L VBG pCO2 103.0 H* VBG pO2 47 H VBG HCO3 43.1 H* VBG Total CO2 46.3 H* VBG O2 Saturation 78.9 H VBG Base Excess 12.1 H Carboxyhemoglobin 3.3 H Total Hemoglobin 11.6 L Chloride 94 L Carbon Dioxide 31 H BUN 25 H Glucose 200 H 03/15/19 03/15/19 20:25 20:25 WBC 13.1 H Hgb 11.8 L Gran % 85.2 H Lymph % (Auto) 9.4 L Gran # 11.2 H Lymph # (Auto) 1.2 L Seg Neutrophils % Lymphocytes % RBC Morphology Basophilic Stippling ABG Methemoglobin VBG pH VBG pCO2 VBG pO2 VBG HCO3 VBG Total CO2 VBG O2 Saturation VBG Base Excess Carboxyhemoglobin Total Hemoglobin Chloride 93 L Carbon Dioxide 35 H BUN Glucose Meds: Medications Albuterol/Ipratropium (Duoneb) 3 ml NEB Q4HRT [facility] Stop: 03/18/19 02:59 Last Admin: 03/16/19 03:50 Dose: 3 ml Documented by: Haloperidol Lactate (Haldol) 1 mg IV Q4HP PRN PRN Reason: Anxiety Heparin Sodium (Porcine) (Heparin) 5,000 unit SQ Q12 [facility] Hydralazine HCl (Apresoline) 10 mg IV Q6H PRN PRN Reason: SBP > 160 Sodium Chloride (Sodium Chloride 0.9%) 1,000 mls @ 75 mls/hr IV .[id number] [facility] Last Admin: 03/16/19 01:15 Dose: 75 mls/hr Documented by: Azithromycin 500 mg/ Dextrose 250 mls @ 250 mls/hr IV Q24H [facility]; Protocol Stop: 03/18/19 00:29 Last Infusion: 03/16/19 02:54 Dose: Infused Documented by: Ceftriaxone Sodium 2 gm/ (Dextrose) 50 mls @ 100 mls/hr IV Q24H [facility]; Protocol Methylprednisolone Sodium Succinate (Solu-Medrol) 62.5 mg IV Q6 [facility] Last Admin: 03/16/19 06:43 Dose: 62.5 mg Documented by: Pantoprazole Sodium (Protonix) 40 mg PO QAMAC [facility] Sodium Chloride (Saline Flush) 10 ml IV Q8 [facility] Last Admin: 03/16/19 06:38 Dose: Not Given Documented by: - ABG Interpretation ABG results: 03/15/19 03/15/19 20:25 21:15 ABG pH TNP ABG pCO2 TNP ABG pO2 TNP ABG HCO3 TNP ABG Total CO2 TNP ABG O2 Saturation TNP ABG Base Excess TNP ABG Methemoglobin TNP 0.3 L VBG pH 7.24 L VBG pCO2 103.0 H* VBG pO2 47 H VBG HCO3 43.1 H* VBG Total CO2 46.3 H* VBG O2 Saturation 78.9 H VBG Base Excess 12.1 H Medical - PN: A/P - Time Spent With Patient Total time spent is greater than 50% in coordination of care (as documented) at patient's floor/unit and/or counseling patient: - Narrative A/P Narrative: Acute hypoxic hypercapnic respiratory failure COPD exacerbation She was started on Solu-Medrol 60 every 8 hourly Antibiotic ceftriaxone and azithromycin DuoNebs every 4 hours and as needed BiPAP-we will try to wean off the BiPAP Target oxygenation 88-92 Patient reported currently not smoking No evidence of pneumonia Chronic hepatitis C Patient reported having chronic hepatitis C with hepatitis C antibody positive no further reporting Hyperlipidemia Continue her home medications Hypertension Continue home medications Alcohol dependence and potential withdrawal We will monitor for any withdrawal Will use Haldol 1 mg every 4 hours for agitation DVT prophylaxis-SCDs and subcu heparin CODE STATUS-full code Expected length of stay-2 midnights Total critical care time spent 60 minutes Medical - PN: Qual - Stroke Symptom Onset Unknown: No - VTE Deep Vein Thrombosis/Pulmonary Embolism Present on Admission: No
[2019-03-16] MEDS: cefTRIAXone 2 GM in DEXTROSE 5% IN WATER 50 ML IV SCH (15:06)
[2019-03-16] MEDS ORDERED: MELATONIN 3 MG TABLET PO PRN (20:52)
[2019-03-17] MEDS: IPRATROPIUM/ALBUTEROL 3 ML AMPUL.NEB NEB SCH ×6 (03:02→23:07)
[2019-03-17 05:35] LABS: ALT/SGPT 15 U/l (0-40); AST/SGOT 17 U/l (0-37); Albumin 3.5 gm/dL (3.2-5.2); Albumin/Globulin Ratio 1.3 (1.0-2.3); Alkaline Phosphatase 56 U/L (39-117); Bilirubin,Total < 0.2 mg/dL (0.0-1.0); Carbon Dioxide 37 mmol/L (22-30); Chloride 97 mmol/L (96-108); Globulin 2.6 gm/dL (2.2-3.7); Glucose 182 mg/dL (70-105); Hematocrit 31.3 % (36.0-48.0); Hemoglobin 10.1 g/dL (12.0-15.0); Mean Corpuscular HGB Conc 32.1 g/dL (31.0-36.0); Mean Platelet Volume 7.9 fL (7.4-10.4); Platelet Count 243 K/mcL (140-440); RBC 3.48 M/mcL (4.00-5.20); Red Cell Distribution Width 14.1 % (11.5-14.5); WBC 5.7 K/mcL (4.5-11.0)
[2019-03-17] MEDS: methylPREDNISolone SOD SUCC 125 MG/2 ML VIAL IV SCH ×3 (05:36→19:06)
[2019-03-17 05:38] LABS: Blood Urea Nitrogen 19 mg/dl (8-23); Glomerular Filtration Rate 102
[2019-03-17] MEDS: 0.9 % SODIUM CHLORIDE 1,000 ML IV SCH ×3 (05:48→21:18)
[2019-03-17] MEDS: 0.9 % SODIUM CHLORIDE 10 ML SYRINGE IV SCH ×4 (05:57→21:19)
[2019-03-17] MEDS: PANTOPRAZOLE 40 MG TABLET PO SCH (06:40)
[2019-03-17 07:49] LABS: Band Neutrophils % 4 % (0-10); Hypochromasia 1+ (NONE SEEN); Lymphocytes % 5 % (15-49); Platelet Estimate NORMAL (NORMAL); RBC Morphology ABNORM (NORMAL); Segmented Neutrophils % 91 % (38-78)
[2019-03-17] MEDS: HEPARIN 5,000 UNIT/ML VIAL SQ SCH ×2 (09:08→21:16)
[2019-03-17] MEDS: cefTRIAXone 2 GM in DEXTROSE 5% IN WATER 50 ML IV SCH (09:08)
[2019-03-17] MEDS ORDERED: FLU VACC QS2019-20(6MOS UP)/PF 60 MCG/0.5 ML SYRINGE IM ONE (10:00)
[2019-03-17] MEDS: AZITHROMYCIN 500 MG in DEXTROSE 5% IN WATER 250 ML IV SCH (10:24)
[2019-03-17] MEDS ORDERED: ALBUTEROL SULFATE 2.5 MG/3 ML NEBULIZER NEB PRN (10:52)
[2019-03-17] MEDS ORDERED: hydrALAZINE 20 MG/ML VIAL IV PRN (13:55)
[2019-03-17] MEDS ORDERED: MELATONIN 3 MG TABLET PO PRN (13:55)
[2019-03-17] MEDS ORDERED: HALOPERIDOL LACTATE 5 MG/ML VIAL IV PRN (13:55)
--- NOTE | 2019-03-17 20:28 | Internal Med Progress Note ---
Medical - PN: Subj Patient information: Note initiated : 03/17/19 at 8:26 pm Service Date, if different from initiated Date: [] Patient: Lexus Venegas 63 y/o F admitted on 03/15/19 for withdrawl from ETOH. Chief Complaint: [] Interval history: 03/16-her mental status improving, PCO2 improved this morning to 75 from 103, she was using BiPAP overnight intermittently she was received Haldol for anxiet y. We will keep the Haldol for anxiety she is allergic to lorazepam. She also has history of alcoholism and will monitor her for withdrawal and use Haldol as needed. Telemetry monitoring. 03/17-patient is off of BiPAP and she is refusing to wear the BiPAP she is complaining of anxiety and probable withdrawal and using Haldol for anxiety. Patient has chronic PCO2 retention. Patient does not want further treatment for her COPD exacerbation. She would like to continue her Solu-Medrol but no BiPAP for now. I explained to the patient she can go into comatose state with a retention of PCO2 but she refuses Pertinent ROS: General-distress improved, no fever no chills Respiratory-respiratory distress improved but still having difficulty in breathing and diminished lung sounds and wheezes Chest pain-CVS-no chest pain no palpitations no dizziness Abdomen-no diarrhea no constipation Neuro-no headache no seizure - Constitutional Vitals: Vital Signs Temp Pulse Resp BP Pulse Ox 98.1 F 116 H 22 151/84 97 03/17/19 12:01 03/17/19 18:55 03/17/19 18:55 03/17/19 12:01 03/17/19 19:23 Period Temp Pulse Resp BP Sys/[place] Pulse Ox Last 24 Hr 97.6 F-98.4 F 103-116 13-35 122-196/72-104 92-100 Intake and Output 03/17/19 03/17/19 03/17/19 05:59 13:59 21:59 Intake Total 700 650 540 Output Total 690 600 625 Balance 10 50 -85 Intake & Output: Intake & Output 03/17/19 03/17/19 03/17/19 05:59 13:59 21:59 Intake Total 700 650 540 Output Total 690 600 625 Balance 10 50 -85 Intake: Nourishment/Supplement quantity 120 (ml) IV 50 Rocephin 2 gm In Dextrose 5% in 50 Water 50 ml @ 100 mls/hr IV Q24H [facility] Rx#:[id number] Oral 700 480 540 Output: Void Amount 690 600 325 Urine/Stool Mix 300 Other: Meal Breakfast Percent of Meal Consumed 25% Nourishment/Supplement name ensure Urine Appearance Clear Urine Color Light Abbi Urine Odor Normal Stool Size Small Stool Color Brown Brown Stool Consistency Loose Liquid # Bowel Movements 1 - Head Head exam: Present: atraumatic, normal inspection - Eye Eye exam: Present: normal appearance. Absent: conjunctival injection, periorbital swelling, scleral icterus - ENT ENT exam: Present: mucous membranes dry, normal exam, normal oropharynx - Neck Neck exam: Present: normal inspection. Absent: tenderness - Respiratory Respiratory exam: Present: decreased breath sounds, prolonged expiratory phase, wheezes - Cardiovascular Cardiovascular exam: Present: normal rate and rhythm. Absent: bradycardia, diastolic murmur, gallop - GI/Abdominal GI/Abdominal exam: Present: normal bowel sounds, soft. Absent: diminished bowel sounds, distended - Neurological Exam Neurological exam: Present: alert, CN II-XII intact, oriented X3, reflexes normal. Absent: motor sensory deficit - Psychiatric Psychiatric exam: Present: anxious. Absent: agitated, suicidal ideation Medical - PN: Obj Da - Labs CBC & Chem 7: 03/17/19 03:40 03/17/19 03:40 Labs: Abnormal Lab Results 03/17/19 03/17/19 03/16/19 03:40 03:40 03:50 WBC 12.5 H RBC 3.48 L Hgb 10.1 L 11.5 L Hct 31.3 L Gran % Lymph % (Auto) Gran # Lymph # (Auto) Seg Neutrophils % 91 H 85 H Lymphocytes % 5 L 5 L RBC Morphology Abnorm A Abnorm A Hypochromasia 1+ A Basophilic Stippling Occ A ABG Methemoglobin VBG pH VBG pCO2 VBG pO2 VBG HCO3 VBG Total CO2 VBG O2 Saturation VBG Base Excess Carboxyhemoglobin Total Hemoglobin Chloride Carbon Dioxide 37 H BUN Creatinine 0.5 L Glucose 182 H 03/16/19 03/15/19 03/15/19 03:35 21:15 20:25 WBC RBC Hgb Hct Gran % Lymph % (Auto) Gran # Lymph # (Auto) Seg Neutrophils % Lymphocytes % RBC Morphology Hypochromasia Basophilic Stippling ABG Methemoglobin 0.3 L VBG pH 7.24 L VBG pCO2 103.0 H* VBG pO2 47 H VBG HCO3 43.1 H* VBG Total CO2 46.3 H* VBG O2 Saturation 78.9 H VBG Base Excess 12.1 H Carboxyhemoglobin 3.3 H Total Hemoglobin 11.6 L Chloride 94 L 93 L Carbon Dioxide 31 H 35 H BUN 25 H Creatinine Glucose 200 H 03/15/19 20:25 WBC 13.1 H RBC Hgb 11.8 L Hct Gran % 85.2 H Lymph % (Auto) 9.4 L Gran # 11.2 H Lymph # (Auto) 1.2 L Seg Neutrophils % Lymphocytes % RBC Morphology Hypochromasia Basophilic Stippling ABG Methemoglobin VBG pH VBG pCO2 VBG pO2 VBG HCO3 VBG Total CO2 VBG O2 Saturation VBG Base Excess Carboxyhemoglobin Total Hemoglobin Chloride Carbon Dioxide BUN Creatinine Glucose Meds: Medications Albuterol Sulfate (Ventolin) 2.5 mg NEB Q3HP PRN PRN Reason: Shortness Of Breath Albuterol/Ipratropium (Duoneb) 3 ml NEB Q4HRT [facility] Stop: 03/18/19 02:59 Last Admin: 03/17/19 18:52 Dose: 3 ml Documented by: Haloperidol Lactate (Haldol) 1 mg IV Q4HP PRN PRN Reason: Anxiety Heparin Sodium (Porcine) (Heparin) 5,000 unit SQ Q12 [facility] Hydralazine HCl (Apresoline) 10 mg IV Q6H PRN PRN Reason: SBP > 160 Azithromycin 500 mg/ Dextrose 250 mls @ 250 mls/hr IV Q24H [facility]; Protocol Stop: 03/18/19 10:59 Ceftriaxone Sodium 2 gm/ (Dextrose) 50 mls @ 100 mls/hr IV Q24H [facility]; Protocol Sodium Chloride (Sodium Chloride 0.9%) 1,000 mls @ 75 mls/hr IV .[id number] [facility] Melatonin (Melatonin 3mg Tablet) 3 mg PO HSP PRN PRN Reason: Sleep Methylprednisolone Sodium Succinate (Solu-Medrol) 62.5 mg IV Q6 [facility] Last Admin: 03/17/19 19:06 Dose: 62.5 mg Documented by: Pantoprazole Sodium (Protonix) 40 mg PO QAMAC [facility] Sodium Chloride (Saline Flush) 10 ml IV Q8 [facility] Last Admin: 03/17/19 19:52 Dose: Not Given Documented by: - ABG Interpretation ABG results: 03/15/19 03/15/19 20:25 21:15 ABG pH TNP ABG pCO2 TNP ABG pO2 TNP ABG HCO3 TNP ABG Total CO2 TNP ABG O2 Saturation TNP ABG Base Excess TNP ABG Methemoglobin TNP 0.3 L VBG pH 7.24 L VBG pCO2 103.0 H* VBG pO2 47 H VBG HCO3 43.1 H* VBG Total CO2 46.3 H* VBG O2 Saturation 78.9 H VBG Base Excess 12.1 H Medical - PN: A/P - Time Spent With Patient Total time spent is greater than 50% in coordination of care (as documented) at patient's floor/unit and/or counseling patient: - Narrative A/P Narrative: General-distress improved Respiratory-shortness of breath improved but still having wheezing and respirat ory distress Cardiac-no chest pain no palpitations Abdomen-no diarrhea no constipation Neuro-confusion improved and agitation improved Musculoskeletal no new symptom Acute hypoxic hypercapnic respiratory failure COPD exacerbation She was started on Solu-Medrol 60 every 8 hourly Antibiotic ceftriaxone and azithromycin-continue DuoNebs every 4 hours and as needed Refuses BiPAP-kept BiPAP as needed Target oxygenation 88-92 Chronic hepatitis C Patient reported having chronic hepatitis C with hepatitis C antibody positive no further reporting Hyperlipidemia Continue her home medications Hypertension Continue home medications Alcohol dependence and potential withdrawal Probable withdrawal Does not want any benzodiazepines and ordered Haldol every 4 hours 1 mg for agitation anxiety DVT prophylaxis-SCDs and subcu heparin CODE STATUS-full code Expected length of stay-1 midnights Medical - PN: Qual - Stroke Symptom Onset Unknown: No - VTE Deep Vein Thrombosis/Pulmonary Embolism Present on Admission: No
[2019-03-17] MEDS: ALBUTEROL SULFATE 2.5 MG/3 ML NEBULIZER NEB PRN (21:21)
[2019-03-18] MEDS: methylPREDNISolone SOD SUCC 125 MG/2 ML VIAL IV SCH ×2 (00:31→06:07)
[2019-03-18] MEDS: ALBUTEROL SULFATE 2.5 MG/3 ML NEBULIZER NEB PRN ×3 (03:45→09:56)
[2019-03-18] MEDS: 0.9 % SODIUM CHLORIDE 10 ML SYRINGE IV SCH ×2 (06:07→15:11)
[2019-03-18 06:30] LABS: Hematocrit 30.4 % (36.0-48.0); Hemoglobin 9.7 g/dL (12.0-15.0); Mean Cell Volume 90.1 fL (80.0-100.0); Mean Corpuscular HGB Conc 31.8 g/dL (31.0-36.0); Mean Platelet Volume 8.2 fL (7.4-10.4); Platelet Count 221 K/mcL (140-440); RBC 3.38 M/mcL (4.00-5.20); Red Cell Distribution Width 13.8 % (11.5-14.5); WBC 9.4 K/mcL (4.5-11.0)
[2019-03-18] MEDS: 0.9 % SODIUM CHLORIDE 1,000 ML IV SCH (06:37)
[2019-03-18 07:04] LABS: ALT/SGPT 15 U/l (0-40); AST/SGOT 17 U/l (0-37); Albumin 3.3 gm/dL (3.2-5.2); Albumin/Globulin Ratio 1.4 (1.0-2.3); Alkaline Phosphatase 48 U/L (39-117); Bilirubin,Total < 0.2 mg/dL (0.0-1.0); Blood Urea Nitrogen 15 mg/dl (8-23); Calcium 8.4 mg/dl (8.6-10.4); Carbon Dioxide 37 mmol/L (22-30); Chloride 97 mmol/L (96-108); Globulin 2.4 gm/dL (2.2-3.7); Glomerular Filtration Rate 102; Glucose 149 mg/dL (70-105)
[2019-03-18] MEDS ORDERED: PANTOPRAZOLE 40 MG TABLET PO SCH (07:30)
[2019-03-18 07:52] LABS: Band Neutrophils % 2 % (0-10); Hypochromasia 2+ (NONE SEEN); Lymphocytes % 7 % (15-49); Monocytes % (Manual) 1 % (1-12); Platelet Estimate NORMAL (NORMAL); RBC Morphology ABNORM (NORMAL); Segmented Neutrophils % 90 % (38-78)
[2019-03-18] MEDS ORDERED: cefTRIAXone 2 GM in DEXTROSE 5% IN WATER 50 ML IV SCH (09:00)
--- NOTE | 2019-03-18 09:57 | Internal Med Progress Note ---
Medical - PN: Subj Patient information: Note initiated : 03/18/19 at 9:55 am Service Date, if different from initiated Date: [] Patient: Lexus Venegas 63 y/o F admitted on 03/15/19 for withdrawl from ETOH. Chief Complaint: [] Interval history: 03/16-her mental status improving, PCO2 improved this morning to 75 from 103, she was using BiPAP overnight intermittently she was received Haldol for anxie ty. We will keep the Haldol for anxiety she is allergic to lorazepam. She also has history of alcoholism and will monitor her for withdrawal and use Haldol as needed. Telemetry monitoring. 03/17-patient is off of BiPAP and she is refusing to wear the BiPAP she is complaining of anxiety and probable withdrawal and using Haldol for anxiety. Patient has chronic PCO2 retention. Patient does not want further treatment for her COPD exacerbation. She would like to continue her Solu-Medrol but no BiPAP for now. I explained to the patient she can go into comatose state with a retention of PCO2 but she refuses 03/18-patient feeling tired and continued having wheezing and shortness of breath, Solu-Medrol changed to p.o. prednisone, ordered scheduled duo nebs and as needed albuterol strongly encourage her to use the BiPAP Pertinent ROS: General-distress improved, no fever no chills Respiratory-respiratory distress improved but still having difficulty in breathing and diminished lung sounds and wheezes Chest pain-CVS-no chest pain no palpitations no dizziness Abdomen-no diarrhea no constipation Neuro-no headache no seizure - Constitutional Vitals: Vital Signs Temp Pulse Resp BP Pulse Ox 97.4 F 74 18 145/80 96 03/18/19 08:00 03/18/19 08:00 03/18/19 08:00 03/18/19 08:00 03/18/19 08:00 Period Temp Pulse Resp BP Sys/[place] Pulse Ox Last 24 Hr 97.4 F-98.1 F 74-117 16-31 127-162/77-104 94-97 Intake and Output 03/17/19 03/18/19 03/18/19 21:59 05:59 13:59 Intake Total 1840 0 Output Total 775 200 200 Balance 1065 -200 -200 Weight 140 lb 1.6 oz Intake & Output: Intake & Output 03/17/19 03/18/19 03/18/19 21:59 05:59 13:59 Intake Total 1840 0 Output Total 775 200 200 Balance 1065 -200 -200 Weight 140 lb 1.6 oz Intake: IV 1000 Sodium Chloride 0.9% 1,000 ml @ 1000 75 mls/hr IV .[id number] [facility] Rx#: [id number] Oral 840 0 Output: Void Amount 475 200 200 Urine/Stool Mix 300 Other: Meal Dinner Percent of Meal Consumed 50% Feeding Ability Independent Urine Appearance Clear Urine Color Bright Yellow Urine Odor Normal Stool Size Moderate Stool Color Brown Stool Consistency Loose # Voids 1 1 # Bowel Movements 1 - Head Head exam: Present: atraumatic, normal inspection - Eye Eye exam: Absent: conjunctival injection, nystagmus, periorbital swelling - ENT ENT exam: Present: mucous membranes dry, normal exam - Neck Neck exam: Present: normal inspection. Absent: lymphadenopathy, meningismus - Respiratory Respiratory exam: Present: accessory muscle use, decreased breath sounds, wheezes - GI/Abdominal GI/Abdominal exam: Present: normal bowel sounds, soft. Absent: diminished bowel sounds, distended - Neurological Exam Neurological exam: Present: alert, oriented X3 - Psychiatric Psychiatric exam: Present: anxious. Absent: agitated, depressed Medical - PN: Obj Da - Labs CBC & Chem 7: 03/18/19 05:06 03/18/19 05:06 Labs: Abnormal Lab Results 03/18/19 03/18/19 03/17/19 05:06 05:06 03:40 WBC RBC 3.38 L Hgb 9.7 L Hct 30.4 L Gran % Lymph % (Auto) Gran # Lymph # (Auto) Seg Neutrophils % 90 H Lymphocytes % 7 L RBC Morphology Abnorm A Hypochromasia 2+ A Basophilic Stippling ABG Methemoglobin VBG pH VBG pCO2 VBG pO2 VBG HCO3 VBG Total CO2 VBG O2 Saturation VBG Base Excess Carboxyhemoglobin Total Hemoglobin Chloride Carbon Dioxide 37 H 37 H BUN Creatinine 0.5 L 0.5 L Glucose 149 H 182 H Calcium 8.4 L Total Protein 5.7 L 03/17/19 03/16/19 03/16/19 03:40 03:50 03:35 WBC 12.5 H RBC 3.48 L Hgb 10.1 L 11.5 L Hct 31.3 L Gran % Lymph % (Auto) Gran # Lymph # (Auto) Seg Neutrophils % 91 H 85 H Lymphocytes % 5 L 5 L RBC Morphology Abnorm A Abnorm A Hypochromasia 1+ A Basophilic Stippling Occ A ABG Methemoglobin VBG pH VBG pCO2 VBG pO2 VBG HCO3 VBG Total CO2 VBG O2 Saturation VBG Base Excess Carboxyhemoglobin Total Hemoglobin Chloride 94 L Carbon Dioxide 31 H BUN 25 H Creatinine Glucose 200 H Calcium Total Protein 03/15/19 03/15/19 03/15/19 21:15 20:25 20:25 WBC 13.1 H RBC Hgb 11.8 L Hct Gran % 85.2 H Lymph % (Auto) 9.4 L Gran # 11.2 H Lymph # (Auto) 1.2 L Seg Neutrophils % Lymphocytes % RBC Morphology Hypochromasia Basophilic Stippling ABG Methemoglobin 0.3 L VBG pH 7.24 L VBG pCO2 103.0 H* VBG pO2 47 H VBG HCO3 43.1 H* VBG Total CO2 46.3 H* VBG O2 Saturation 78.9 H VBG Base Excess 12.1 H Carboxyhemoglobin 3.3 H Total Hemoglobin 11.6 L Chloride 93 L Carbon Dioxide 35 H BUN Creatinine Glucose Calcium Total Protein Meds: Medications Albuterol Sulfate (Ventolin) 2.5 mg NEB Q3HP PRN PRN Reason: Shortness Of Breath Last Admin: 03/18/19 07:09 Dose: 2.5 mg Documented by: Albuterol/Ipratropium (Duoneb) 3 ml NEB Q6HRT [facility] Haloperidol Lactate (Haldol) 1 mg IV Q4HP PRN PRN Reason: Anxiety Heparin Sodium (Porcine) (Heparin) 5,000 unit SQ Q12 [facility] Last Admin: 03/17/19 21:16 Dose: 5,000 unit Documented by: Hydralazine HCl (Apresoline) 10 mg IV Q6H PRN PRN Reason: SBP > 160 Azithromycin 500 mg/ Dextrose 250 mls @ 250 mls/hr IV Q24H [facility]; Protocol Stop: 03/18/19 10:59 Ceftriaxone Sodium 2 gm/ (Dextrose) 50 mls @ 100 mls/hr IV Q24H [facility]; Protocol Sodium Chloride (Sodium Chloride 0.9%) 1,000 mls @ 75 mls/hr IV .[id number] [facility] Last Admin: 03/18/19 06:37 Dose: Not Given Documented by: Melatonin (Melatonin 3mg Tablet) 3 mg PO HSP PRN PRN Reason: Sleep Pantoprazole Sodium (Protonix) 40 mg PO QAMAC [facility] Last Admin: 03/18/19 06:55 Dose: 40 mg Documented by: Prednisone (Prednisone) 40 mg PO [facility] Sodium Chloride (Saline Flush) 10 ml IV Q8 [facility] Last Admin: 03/18/19 06:07 Dose: Not Given Documented by: - ABG Interpretation ABG results: 03/15/19 03/15/19 20:25 21:15 ABG pH TNP ABG pCO2 TNP ABG pO2 TNP ABG HCO3 TNP ABG Total CO2 TNP ABG O2 Saturation TNP ABG Base Excess TNP ABG Methemoglobin TNP 0.3 L VBG pH 7.24 L VBG pCO2 103.0 H* VBG pO2 47 H VBG HCO3 43.1 H* VBG Total CO2 46.3 H* VBG O2 Saturation 78.9 H VBG Base Excess 12.1 H Medical - PN: A/P - Time Spent With Patient Total time spent is greater than 50% in coordination of care (as documented) at patient's floor/unit and/or counseling patient: - Narrative A/P Narrative: Acute hypoxic hypercapnic respiratory failure COPD exacerbation She was started on Solu-Medrol 60 every 8 hourly Solu-Medrol will be changed to prednisone 40 Antibiotic ceftriaxone and xmlrdvhffkkt-pnsmbdib-ipcbc day DuoNebs every 6 hourly and albuterol as needed Refuses BiPAP-kept BiPAP as needed Target oxygenation 88-92 Chronic hepatitis C Patient reported having chronic hepatitis C with hepatitis C antibody positive no further reporting Hyperlipidemia Continue her home medications Hypertension Continue home medications Alcohol dependence and potential withdrawal Probable withdrawal Does not want any benzodiazepines and ordered Haldol every 4 hours 1 mg for agitation anxiety DVT prophylaxis-SCDs and subcu heparin CODE STATUS-full code Expected length of stay-1 midnights Medical - PN: Qual - Stroke Symptom Onset Unknown: No - VTE Deep Vein Thrombosis/Pulmonary Embolism Present on Admission: No
[2019-03-18] MEDS ORDERED: AZITHROMYCIN 500 MG in DEXTROSE 5% IN WATER 250 ML IV SCH (10:00)
[2019-03-18] MEDS: HEPARIN 5,000 UNIT/ML VIAL SQ SCH (11:58)
[2019-03-18] MEDS ORDERED: FLU VACC QS2019-20(6MOS UP)/PF 60 MCG/0.5 ML SYRINGE IM ONE (12:15)
[2019-03-18] MEDS ORDERED: IPRATROPIUM/ALBUTEROL 3 ML AMPUL.NEB NEB SCH (13:00)
--- NOTE | 2019-03-18 14:26 | Discharge Summary ---
Medical - DS: Prov Patient information: Note initiated : 03/18/19 at 2:23 pm Service Date, if different from initiated Date: [] Patient: Lexus Venegas 63 y/o F admitted on 03/15/19 for withdrawl from ETOH. Chief Complaint: [] Date of admission: 03/15/19 23:54 Discharge date: 03/18/19 Primary care physician: Vic Ayala Consults: 03/15/19 Consult to Physician [CONS] Stat Comment: Consulting Provider: Julianne Romano Reason For Exam: Physician to Consult Medical - DS: Meds - Discharge Medications Prescriptions: Cefdinir 300 mg PO BID 5 Days #10 cap Transmission Status: Pending to [facility] predniSONE [Deltasone] 40 mg PO DAILY #7 tab Transmission Status: Pending to [facility] Active and Home Medications: Home Medications Aspirin [Alona Chewable Aspirin] 81 mg PO QDAY 10/05/14 [History Confirmed 03/16/19 Last Taken 03/14/19 08:00] ipratropium-albuterol 0.5 mg-3 mg(2.5 mg base)/3 mL nebulization soln 3 ml INHALATION Q6H PRN #90 ml 08/15/17 [Rx Confirmed 03/16/19 Last Taken Unknown] budesonide-formoterol HFA 160 mcg-4.5 mcg/actuation aerosol inhaler 1 puff INH ALATION Q12H g 06/18/18 [History Confirmed 03/16/19 Last Taken Unknown] metformin 850 mg tablet 850 mg PO QPM tab 06/18/18 [History Confirmed 03/16/19 Last Taken Unknown] Sucralfate [Carafate] 1 gm PO 1HRACHS #60 tab 06/29/18 [Rx Confirmed 03/16/19 Last Taken Unknown] losartan 100 mg tablet 50 mg PO QDAY 90 Days #45 tab 09/12/18 [Rx Confirmed 03/16/19 Last Taken 03/14/19 08:00] amlodipine 5 mg tablet 5 mg PO QDAY 90 Days #90 tab 10/07/18 [Rx Confirmed 03/16/19 Last Taken 03/14/19 08:00] pantoprazole 40 mg tablet,delayed release 40 mg PO QDAY 10/29/18 [History Confirmed 03/16/19 Last Taken Unknown] ipratropium 20 mcg-albuterol 100 mcg/actuation mist for inhalation 1 puff INHALATION QID #15 g 12/03/18 [Rx Confirmed 03/16/19 Last Taken Unknown] Ventolin HFA 90 mcg/actuation aerosol inhaler 2 puff INHALATION Q6H PRN #8 g NS 12/27/18 [Rx Confirmed 03/16/19 Last Taken Unknown] montelukast 10 mg tablet 10 mg PO QPM #90 tab 12/31/18 [Rx Confirmed 03/16/19 Last Taken 03/14/19 08:00] Cefdinir 300 mg PO BID 5 Days #10 cap 03/18/19 [Rx Last Taken Unknown] predniSONE [Deltasone] 40 mg PO DAILY #7 tab 03/18/19 [Rx Last Taken Unknown] Medical - DS: Hosp Hospital Course: 03/16-her mental status improving, PCO2 improved this morning to 75 from 103, she was using BiPAP overnight intermittently she was received Haldol for anxiety. We will keep the Haldol for anxiety she is allergic to lorazepam. She also has history of alcoholism and will monitor her for withdrawal and use Haldol as needed. Telemetry monitoring. 03/17-patient is off of BiPAP and she is refusing to wear the BiPAP she is complaining of anxiety and probable withdrawal and using Haldol for anxiety. Patient has chronic PCO2 retention. Patient does not want further treatment for her COPD exacerbation. She would like to continue her Solu-Medrol but no BiPAP for now. I explained to the patient she can go into comatose state with a retention of PCO2 but she refuses 03/18-patient feeling tired and continued having wheezing and shortness of breath, Solu-Medrol changed to p.o. prednisone, ordered scheduled duo nebs and as needed albuterol strongly encourage her to use the BiPAP. Patient refused use of BiPAP and she refuses any active treatments. Her Solu-Medrol changed to p.o. prednisone. Discussed with the social service physical therapy evaluated and recommended rehab and patient will be discharged to rehab facility today. Acute hypoxic hypercapnic respiratory failure COPD exacerbation She was started on Solu-Medrol 60 every 8 hourly Solu-Medrol will be changed to prednisone 40 Antibiotic ceftriaxone and vcgmfmctpndi-xnzyozcg-ccaep day and changed to cefdinir 300 twice daily for another 5 days DuoNebs every 6 hourly and albuterol as needed She can resume the budesonide inhaler Her oxygen is at her baseline 2 to 4 L with baseline activities Refuses BiPAP Target oxygenation 88-92 Chronic hepatitis C Patient reported having chronic hepatitis C with hepatitis C antibody positive no further reporting Hyperlipidemia Continue her home medications Hypertension Continue home medications Alcohol dependence and potential withdrawal No further evidence of withdrawal does not want any benzodiazepines and ordered Haldol every 4 hours 1 mg for agitation anxiety but she never received during the last 24-hour Discharge diagnosis: Acute hypoxic hypercapnic respiratory failure, COPD exacerbation, alcohol w - Time Spent with Patient Total time spent providing and/or coordinating discharge services: Greater than 30 minutes Medical - DS: Exam - Constitutional Vitals: Vital Signs Temp Pulse Pulse Resp BP Pulse Ox 03/18/19 12:55 114 H 20 03/18/19 12:00 98.6 F 90 24 H 156/86 97 03/18/19 10:04 117 H 22 03/18/19 08:00 97.4 F 74 18 145/80 96 03/18/19 07:18 95 H 20 03/18/19 07:10 94 03/18/19 07:09 94 03/17/19 23:28 98.0 F 91 H 22 156/80 95 03/17/19 23:10 99 H 20 03/17/19 21:15 110 H 22 03/17/19 19:23 97 03/17/19 18:55 116 H 22 03/17/19 18:52 97.9 F 117 H 22 162/78 97 03/17/19 15:15 113 H 20 Intake and Output 03/18/19 03/18/19 03/18/19 05:59 13:59 21:59 Intake Total 0 150 Output Total 200 800 Balance -200 -650 Intake: Oral 0 150 Output: Void Amount 200 600 Urine/Stool Mix 200 Other: Meal Breakfast Percent of Meal Consumed 50% Feeding Ability Assist with Tray Set Up Urine Appearance Clear Urine Color Bright Yellow Urine Odor Normal Stool Size Small Stool Color Brown Stool Consistency Soft Liquid # Voids 1 - Head Head exam: Present: atraumatic, normal inspection, normocephalic - Eye Eye exam: Present: EOMI. Absent: nystagmus, periorbital swelling - ENT ENT exam: Present: mucous membranes moist, normal exam - Respiratory Respiratory exam: Present: accessory muscle use, decreased breath sounds. Absent: chest wall tenderness, respiratory distress - Cardiovascular Cardiovascular exam: Present: normal rate and rhythm. Absent: bradycardia, clicks, diastolic murmur - Neurological Exam Neurological exam: Present: alert, oriented X3, reflexes normal. Absent: motor sensory deficit - Psychiatric Psychiatric exam: Present: anxious. Absent: agitated Medical - DS: Data Labs on day of discharge: Labs from last 24 hours 03/18/19 03/18/19 05:06 05:06 WBC 9.4 RBC 3.38 L Hgb 9.7 L Hct 30.4 L MCV 90.1 MCH 28.6 MCHC 31.8 RDW 13.8 Plt Count 221 MPV 8.2 Total Counted 100 Seg Neutrophils % 90 H Band Neutrophils % 2 Lymphocytes % 7 L Monocytes % (Manual) 1 Platelet Estimate Normal RBC Morphology Abnorm A Hypochromasia 2+ A Sodium 144 Potassium 4.2 Chloride 97 Carbon Dioxide 37 H Anion Gap 10.0 BUN 15 Creatinine 0.5 L GFR Calculation 102 Glucose 149 H Calcium 8.4 L Total Bilirubin < 0.2 AST 17 ALT 15 Alkaline Phosphatase 48 Total Protein 5.7 L Albumin 3.3 Globulin 2.4 Albumin/Globulin Ratio 1.4 Medical - DS: A/P - Patient/Caregiver Discharge Instructions Diet: Low Sodium (2gm) Additional Instructions: At this time patient care is going to be transferred to my collaborating physician (Dr. Winters). All further treatment decisions and modalities will be carried out by Dr. Winters. Prescriptions: Cefdinir 300 mg PO BID 5 Days #10 cap Transmission Status: Pending to [address] predniSONE [Deltasone] 40 mg PO DAILY #7 tab Transmission Status: Pending to [address] Other Amb Orders: [facility] Referral Location: None Selected - Follow up Plan Follow up with: Vic Ayala PA-C [Primary Care Provider] - Disposition: [facility] Prognosis: Undetermined Rehab Potential: Undetermined Medical - DS: Qual - VTE Deep Vein Thrombosis/Pulmonary Embolism Present on Admission: No
[2019-03-19] MEDS ORDERED: predniSONE 20 MG TABLET PO SCH (08:00)
== END 2019-03-18 14:55 | DRG 189 ==
LOC: ED 19:50 → ICU 23:54 → MEDSUR 03-17 13:26
PROVIDERS: ADMIT Internal Medicine; ATTEND Internal Medicine

== ENCOUNTER 2019-06-03 16:42 | Inpatient (IN) ==
[2019-06-03] MEDS ORDERED: IPRATROPIUM/ALBUTEROL 3 ML AMPUL.NEB NEB ONE ×2 (17:09→18:55)
[2019-06-03] MEDS ORDERED: methylPREDNISolone SOD SUCC 125 MG/2 ML VIAL IV ONE (17:09)
[2019-06-03] MEDS ORDERED: LACTATED RINGERS 1,000 ML IV ONE (17:09)
[2019-06-03] MEDS ORDERED: AZITHROMYCIN 250 MG TABLET PO ONE ×2 (17:09→17:49)
--- NOTE | 2019-06-03 17:13 | Emergency Department Note ---
SOB HPI - General Chief Complaint: Shortness of Breath/Dyspnea Stated Complaint: Shortness of breath Time Seen by Provider: 06/03/19 17:09 Source: patient Mode of arrival: wheelchair Limitations: no limitations - History of Present Illness History of COPD, quit smoking 5 years ago. Just the last 4 days she's had cough and cold symptoms. The. Was exposed to a grandchild that had a cough and upper respiratory symptoms. The. Patient has had pain to the left side of the chest when she lays down on the left side up. No nausea, vomiting, cough is been initially productive but just in the last 24 hours, nonproductive. MD Complaint: shortness of breath Improves with: bronchodilators - Related Data Home Medications Medication Instructions Recorded Confirmed Aspirin [Alona Chewable Aspirin] 81 mg PO QDAY 10/05/14 03/16/19 budesonide-formoterol HFA 160 1 puff INHALATION Q12H g 06/18/18 03/16/19 mcg-4.5 mcg/actuation aerosol inhaler metformin 850 mg tablet 850 mg PO QPM tab 06/18/18 03/16/19 pantoprazole 40 mg tablet,delayed 40 mg PO QDAY 10/29/18 03/16/19 release Previous Rx's Medication Instructions Recorded ipratropium 0.5 mg-albuterol 3 mg 3 ml INHALATION Q6H PRN #90 ml 08/15/17 (2.5 mg base)/3 mL nebulization soln Sucralfate [Carafate] 1 gm PO 1HRACHS #60 tab 06/29/18 amlodipine 5 mg tablet 5 mg PO QDAY 90 Days #90 tab 10/07/18 Ventolin HFA 90 mcg/actuation 2 puff INHALATION Q6H PRN #8 g NS 12/27/18 aerosol inhaler montelukast 10 mg tablet 10 mg PO QPM #90 tab 12/31/18 predniSONE [Deltasone] 40 mg PO DAILY #7 tab 03/18/19 losartan 100 mg tablet 50 mg PO QDAY 90 Days #45 tab 04/15/19 ipratropium 20 mcg-albuterol 100 1 puff INHALATION QID #15 g 06/02/19 mcg/actuation mist for inhalation Allergies Allergy/AdvReac Type Severity Reaction Status Date / Time lisinopril Allergy Severe Swelling Verified 03/16/19 07:11 of Lip/Tongue/Throat gabapentin AdvReac Mild Dizziness Verified 03/16/19 07:11 lorazepam AdvReac Mild aggressive Verified 03/16/19 07:11 Review of Systems All systems ED: reviewed and negative except as stated. 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 Absent: conjunctival injection ENT: Present: normal exam, normal oropharynx, mucous membranes moist, TM's normal bilaterally Neck: Present: normal inspection, full ROM, trachea midline Chest: Present: normal inspection, symmetric chest wall rise Respiratory: Present: wheezes, accessory muscle use, prolonged expiratory phase. Absent: respiratory distress, rales/crackles Cardiovascular: Present: regular rate, normal rhythm, normal heart sounds Abdominal: Present: soft, normal bowel sounds. Absent: distention, tenderness Extremities: Present: normal inspection, full ROM Back: Absent: CVA tenderness (R), CVA tenderness (L) Neurological: Present: alert, oriented X3, CN II-XII intact Psychiatric: Present: normal affect, normal mood Skin: Present: warm, dry, normal color Course - Reevaluation(s) Reevaluation #1: Initially she was struggling a lot to breathe, we gave her several breathing treatments. It. She is on a mask for a while to keep her O2 sats barely above 90. Eventually, she's was breathing a little bit easier with morphine, her pulse oximetry was neat reading 90% on 3 L and she normally is on 2 at home. She was still sitting up pursed lip breathing, white count showing 19,000. Her CRP was elevated. Chest x-ray consistent with pneumonia. We justin blood cultures and started her on antibiotics. The. Discussed with our hospitalist. At this point, she'll be admitted for further treatment. Vital Signs Temperature 98.9 F 06/03/19 16:42 Pulse Rate 98 H 06/03/19 16:42 Respiratory Rate 26 H 06/03/19 16:42 Blood Pressure 128/74 06/03/19 16:42 Pulse Oximetry (%) 85 L 06/03/19 16:42 Temperature 98.9 F 06/03/19 16:42 Pulse Rate 106 H 06/03/19 21:18 Respiratory Rate 26 H 06/03/19 16:42 Blood Pressure 131/60 06/03/19 21:11 Pulse Oximetry (%) 94 06/03/19 21:18 Shortness of Breath/Dyspnea - MDM Narrative Medical decision making narrative: Impression COPD exacerbation, #2. Pneumonia - Lab Data Lab results reviewed: Yes I reviewed the patient's lab results. Result diagrams: 06/03/19 17:36 06/03/19 17:36 Lab Results 06/03/19 06/03/19 06/03/19 Range/Units 17:36 17:36 17:36 WBC 19.1 H (4.50-11.00) K/mcL RBC 3.79 (3.59-5.38) M/mcL Hgb 10.8 L (11.2-15.7) g/dL Hct 35.9 (34.1-44.9) % MCV 94.7 (80.0-100.0) fL MCH 28.5 (26.0-34.0) pg MCHC 30.1 L (31.0-36.0) g/dL RDW 12.3 (11.5-14.5) % Plt Count 469 H (140-440) K/mcL MPV 9.6 (7.4-10.4) fL Gran % 83.2 H (38.0-78.0) % Lymph % (Auto) 8.2 L (15.5-49.0) % [place] % (Auto) 6.9 (1.0-12.0) % Eos % (Auto) 1.3 (0.0-7.0) % Baso % (Auto) 0.4 (0.0-2.0) % Gran # 15.91 H (1.80-8.00) K/mcL Lymph # (Auto) 1.57 (1.50-4.80) K/mcL [place] # (Auto) 1.31 H (0.10-0.90) K/mcL Eos # (Auto) 0.24 (0.00-0.70) K/mcL Baso # (Auto) 0.07 (0.00-0.30) K/mcL VBG Lactic Acid 0.9 (0.5-2.0) mmol/L Sodium 145 (133-145) mmol/L Potassium 4.2 (3.3-5.1) mmol/L Chloride 91 L (96-108) mmol/L Carbon Dioxide 43 H* (22-30) mmol/L Anion Gap 11.0 (8-16) BUN 14 (8-23) mg/dl Creatinine 0.7 (0.6-1.1) mg/dl GFR Calculation 92 Glucose 105 (70-105) mg/dL Calcium 9.7 (8.6-10.4) mg/dl Total Bilirubin < 0.2 (0.0-1.0) mg/dL AST 12 (0-37) U/l ALT 9 (0-40) U/l Alkaline Phosphatase 120 H (39-117) U/L C-Reactive Protein 18.1 H (0.0-0.8) mg/dl Total Protein 7.4 (5.9-8.4) gm/dL Albumin 3.1 L (3.2-5.2) gm/dL Globulin 4.3 H (2.2-3.7) gm/dL Albumin/Globulin Ratio 0.7 L (1.0-2.3) 06/03/19 Range/Units 19:25 WBC (4.50-11.00) K/mcL RBC (3.59-5.38) M/mcL Hgb (11.2-15.7) g/dL Hct (34.1-44.9) % MCV (80.0-100.0) fL MCH (26.0-34.0) pg MCHC (31.0-36.0) g/dL RDW (11.5-14.5) % Plt Count (140-440) K/mcL MPV (7.4-10.4) fL Gran % (38.0-78.0) % Lymph % (Auto) (15.5-49.0) % [place] % (Auto) (1.0-12.0) % Eos % (Auto) (0.0-7.0) % Baso % (Auto) (0.0-2.0) % Gran # (1.80-8.00) K/mcL Lymph # (Auto) (1.50-4.80) K/mcL [place] # (Auto) (0.10-0.90) K/mcL Eos # (Auto) (0.00-0.70) K/mcL Baso # (Auto) (0.00-0.30) K/mcL VBG Lactic Acid 1.3 (0.5-2.0) mmol/L Sodium (133-145) mmol/L Potassium (3.3-5.1) mmol/L Chloride (96-108) mmol/L Carbon Dioxide (22-30) mmol/L Anion Gap (8-16) BUN (8-23) mg/dl Creatinine (0.6-1.1) mg/dl GFR Calculation Glucose (70-105) mg/dL Calcium (8.6-10.4) mg/dl Total Bilirubin (0.0-1.0) mg/dL AST (0-37) U/l ALT (0-40) U/l Alkaline Phosphatase (39-117) U/L C-Reactive Protein (0.0-0.8) mg/dl Total Protein (5.9-8.4) gm/dL Albumin (3.2-5.2) gm/dL Globulin (2.2-3.7) gm/dL Albumin/Globulin Ratio (1.0-2.3) - Radiology Data Radiology results reviewed: Yes I reviewed the patient's radiology results. - EKG Data EKG attestation: Yes There are no EKG findings of acute coronary syndrome Disposition Pt seen by TRAVELING ACCOUNTANT/PA only: No Clinical Impression: Community acquired pneumonia, Acute exacerbation of chronic obstructive airways disease Disposition: Xfer As Outpt/Obs ([facility]) Condition: Fair Referrals: Vic Ayala PA-C [Primary Care Provider] -
--- NOTE | 2019-06-03 17:34 | XRay Report ---
HISTORY: COPD, dyspnea FINDINGS: the lungs are hyperinflated. Patient has moderate COPD with pulmonary fibrosis. there are also superimposed ill-defined alveolar opacities throughout both lungs with the greatest involvement in the lower lobes, right middle lobe and lingula. The inflammation and pulmonary fibrosis have progressed since the prior chest x-ray done on 03/15/19. The heart size is normal. No abnormality seen in the mediastinum or michele. IMPRESSION: Worsening inflammation and pulmonary fibrosis throughout both lungs, with air trapping Interpreted and Authenticated by: Lee Mckinney 06/03/19
[2019-06-03 18:09] LABS: Basophils # (Auto) 0.07 K/mcL (0.00-0.30); Basophils % (Auto) 0.4 % (0.0-2.0); Eosinophils # (Auto) 0.24 K/mcL (0.00-0.70); Eosinophils % (Auto) 1.3 % (0.0-7.0); Granulocytes % (Auto) 83.2 % (38.0-78.0); Hematocrit 35.9 % (34.1-44.9); Hemoglobin 10.8 g/dL (11.2-15.7); Lymphocytes # (Auto) 1.57 K/mcL (1.50-4.80); Lymphocytes % (Auto) 8.2 % (15.5-49.0); Mean Cell Volume 94.7 fL (80.0-100.0); Mean Corpuscular HGB Conc 30.1 g/dL (31.0-36.0); Mean Platelet Volume 9.6 fL (7.4-10.4); Monocytes # (Auto) 1.31 K/mcL (0.10-0.90); Monocytes % (Auto) 6.9 % (1.0-12.0); Platelet Count 469 K/mcL (140-440); RBC 3.79 M/mcL (3.59-5.38); Red Cell Distribution Width 12.3 % (11.5-14.5); WBC 19.1 K/mcL (4.50-11.00)
[2019-06-03 18:43] LABS: ALT/SGPT 9 U/l (0-40); AST/SGOT 12 U/l (0-37); Albumin 3.1 gm/dL (3.2-5.2); Albumin/Globulin Ratio 0.7 (1.0-2.3); Alkaline Phosphatase 120 U/L (39-117); Bilirubin,Total < 0.2 mg/dL (0.0-1.0); Blood Urea Nitrogen 14 mg/dl (8-23); C-Reactive Protein 18.1 mg/dl (0.0-0.8); Calcium 9.7 mg/dl (8.6-10.4); Globulin 4.3 gm/dL (2.2-3.7); Glomerular Filtration Rate 92; Glucose 105 mg/dL (70-105)
[2019-06-03 18:54] LABS: Carbon Dioxide 43 mmol/L (22-30); Chloride 91 mmol/L (96-108)
[2019-06-03] MEDS ORDERED: cefTRIAXone 1 GM VIAL IV ONE (18:54)
--- NOTE | 2019-06-03 21:56 | Internal Med History&Physical ---
Medical - H&P: [facility] Patient information: Note initiated : 06/03/19 at 9:51 pm Service Date, if different from initiated Date: [] Patient: Lexus Venegas a 63 y/o F admitted on for Shortness of breath. Chief Complaint: [] History of present illness: Ms. Venegas is a 63 year old F Patient presents the ED with shortness of breath. Has history of COPD on 2 L day and night. Patient was exposed to a sick grandchild recently. States over the past 4 days she is at increased shortness of breath and productive cough of which she thinks was clear sputum however this only is been less productive. In the ED she was evaluated tachypneic originally at 25 with mild tachycardia. She had a leukocytosis and a checks x-ray showed bilateral infiltrates. There is underlying pulmonary fibrosis. She is given breathing treatments with some improvement in her breathing. It was felt that she could not be treated on outpatient basis and thus hospitalization was requested. Review of Systems: Pertinent positives as above. Denies headache/fever/chills/nausea/vomiting/chest or abdominal pain/diarrhea. Remaining 10 point review of system reviewed negative Medical - H&P: PMH Medical history: Medical History Borderline diabetes (Chronic) Hepatitis C antibody test positive (Chronic) Tubular adenoma of colon (Chronic) Gastroesophageal reflux disease (Chronic) Hyperlipidemia (Chronic) Macular degeneration (Chronic) History of tobacco use (Chronic) Polymyalgia rheumatica (Chronic) Hypertension (Chronic) Allergic rhinitis (Chronic) Acute exacerbation of chronic obstructive airways disease (Resolved) Chronic obstructive pulmonary disease (Chronic) Alcohol abuse (Chronic) Past Surgical History History of cataract surgery (Chronic) History of ERCP (Chronic) Hx of cholecystectomy (Chronic) History of colonoscopy (Chronic) History of esophagogastroduodenoscopy (Chronic 05/11/15) Social History (Last Updated 10/29/18 @ 08:38 by Vic Ayala PA-C) Quit smoking 2 years ago Has a couple mixed drinks per week has cut back dramatically over the past month. Is at home with son Medical - H&P: Meds Home Medications Medication Instructions Recorded Confirmed Type Aspirin [Alona Chewable Aspirin] 81 mg PO QDAY 10/05/14 03/16/19 History ipratropium 0.5 mg-albuterol 3 mg 3 ml INHALATION Q6H PRN #90 ml 08/15/17 03/16/19 Rx (2.5 mg base)/3 mL nebulization soln budesonide-formoterol HFA 160 1 puff INHALATION Q12H g 06/18/18 03/16/19 History mcg-4.5 mcg/actuation aerosol inhaler metformin 850 mg tablet 850 mg PO QPM tab 06/18/18 03/16/19 History Sucralfate [Carafate] 1 gm PO 1HRACHS #60 tab 06/29/18 03/16/19 Rx amlodipine 5 mg tablet 5 mg PO QDAY 90 Days #90 tab 10/07/18 03/16/19 Rx pantoprazole 40 mg tablet,delayed 40 mg PO QDAY 10/29/18 03/16/19 History release Ventolin HFA 90 mcg/actuation 2 puff INHALATION Q6H PRN #8 g NS 12/27/18 03/16/19 Rx aerosol inhaler montelukast 10 mg tablet 10 mg PO QPM #90 tab 12/31/18 03/16/19 Rx predniSONE [Deltasone] 40 mg PO DAILY #7 tab 03/18/19 Rx losartan 100 mg tablet 50 mg PO QDAY 90 Days #45 tab 04/15/19 Rx ipratropium 20 mcg-albuterol 100 1 puff INHALATION QID #15 g 06/02/19 Rx mcg/actuation mist for inhalation Allergies Allergy/AdvReac Type Severity Reaction Status Date / Time lisinopril Allergy Severe Swelling Verified 03/16/19 07:11 of Lip/Tongue/Throat gabapentin AdvReac Mild Dizziness Verified 03/16/19 07:11 lorazepam AdvReac Mild aggressive Verified 03/16/19 07:11 Medical - H&P: Exam - Constitutional Vitals: Temp Pulse Resp BP Pulse Ox 98.9 F 106 H 26 H 131/60 94 06/03/19 16:42 06/03/19 21:18 06/03/19 16:42 06/03/19 21:11 06/03/19 21:18 Exam: General: Alert, Awake, No acute Distress Eyes/N/T: EOMI, PERRL, Head/Neck: neck supple, normocephalic atraumatic CV: Mildly tacky but regular No murmurs, normal s1/s2 Pulm: b/l diminished especially left base, no wheezing, unlabored Abd: soft, nontender, +BS x4 Ext: no clubbing/cyanosis/edema Neuro: Alert, no focal deficits, moves all extremities, CN 2-12 grossly intact, symmetrical strength b/l upper/lower, sensations intact b/l upper/lower Skin: warm/dry Medical - H&P: Reslt - Labs CBC & Chem 7: 06/03/19 17:36 06/03/19 17:36 Labs: Short CBC 06/03/19 Range/Units 17:36 WBC 19.1 H (4.50-11.00) K/mcL Hgb 10.8 L (11.2-15.7) g/dL Hct 35.9 (34.1-44.9) % Plt Count 469 H (140-440) K/mcL BMP 06/03/19 17:36 Sodium 145 Potassium 4.2 Chloride 91 L Carbon Dioxide 43 H* BUN 14 Creatinine 0.7 Glucose 105 Calcium 9.7 Liver Function 06/03/19 Range/Units 17:36 Total Bilirubin < 0.2 (0.0-1.0) mg/dL AST 12 (0-37) U/l ALT 9 (0-40) U/l Alkaline Phosphatase 120 H (39-117) U/L Albumin 3.1 L (3.2-5.2) gm/dL Medical - H&P: A/P - Narrative A/P Narrative: A: *CAP: -leukocytosis *COPD/pulmonary fibrosis: *acute on Chronic metabolic alkalosis: 2/2 above *Anemia, chronic: *HTN: *GERD: *Chronic abdominal pain: *Macular degeneration: P: -rocephin/azithro -check pct/SC -cont pulse ox -acetazolamide -IS/Acapella -prn nebs -home O2 -pt/to - -ppx: Lovenox
[2019-06-03] MEDS ORDERED: LORazepam 2 MG/ML VIAL IV PRN (22:14)
[2019-06-03] MEDS ORDERED: chlordiazePOXIDE 25 MG CAPSULE PO PRN (22:14)
[2019-06-04] MEDS ORDERED: LACTULOSE 20 GM/30 ML ORAL.SOL PO PRN (01:01)
[2019-06-04] MEDS ORDERED: HYDROcodone/APAP 5/325MG TABLET PO PRN (01:01)
[2019-06-04] MEDS ORDERED: POTASSIUM CHLORIDE 40 MEQ in DEXTROSE 5% IN WATER 500 ML IV PRN (01:01)
[2019-06-04] MEDS ORDERED: DEXTROSE 31 GM ORAL.SUSP PO PRN (01:01)
[2019-06-04] MEDS ORDERED: MAGNESIUM SULFATE 2 GM/50 ML BAG IV PRN (01:01)
[2019-06-04] MEDS ORDERED: POLYETHYLENE GLYCOL 3350 17 GM PACKET PO PRN (01:01)
[2019-06-04] MEDS ORDERED: SENNOSIDES 1 TABLET PO PRN (01:01)
[2019-06-04] MEDS ORDERED: DEXTROSE 50% 50 ML VIAL IV PRN (01:01)
[2019-06-04] MEDS ORDERED: acetaZOLAMIDE SOD 500 MG VIAL IV ONE (01:01)
[2019-06-04] MEDS ORDERED: POTASSIUM CHLORIDE 20 MEQ TABLET PO PRN ×2 (01:01)
[2019-06-04] MEDS ORDERED: ONDANSETRON 4 MG/2 ML VIAL IV PRN (01:01)
[2019-06-04] MEDS ORDERED: IPRATROPIUM/ALBUTEROL 3 ML AMPUL.NEB NEB ONE (01:51)
[2019-06-04] MEDS ORDERED: INSULIN LISPRO 1 UNIT/0.01 ML UNIT SQ ONE (01:51)
[2019-06-04] MEDS ORDERED: cefTRIAXone 1 GM VIAL ONE (01:51)
[2019-06-04] MEDS: IPRATROPIUM/ALBUTEROL 3 ML AMPUL.NEB NEB PRN ×2 (02:01→22:49)
[2019-06-04] MEDS: INSULIN LISPRO 1 UNIT/0.01 ML UNIT SQ SCH ×5 (02:02→21:30)
[2019-06-04] MEDS: IPRATROPIUM/ALBUTEROL 3 ML AMPUL.NEB NEB SCH ×3 (02:03→17:15)
[2019-06-04] MEDS: cefTRIAXone 2 GM in DEXTROSE 5% IN WATER 50 ML IV SCH ×2 (02:04→14:29)
[2019-06-04] MEDS: 0.9 % SODIUM CHLORIDE 10 ML SYRINGE IV SCH ×3 (02:05→21:22)
[2019-06-04] MEDS: AZITHROMYCIN 500 MG in DEXTROSE 5% IN WATER 250 ML IV SCH ×2 (03:35→15:23)
[2019-06-04] MEDS ORDERED: 0.9 % SODIUM CHLORIDE 10 ML SYRINGE IV SCH (06:00)
--- NOTE | 2019-06-04 08:58 | Internal Med Progress Note ---
Medical - PN: Subj Patient information: Note initiated : 06/04/19 at 8:55 am Service Date, if different from initiated Date: [] Patient: Lexus Venegas a 63 y/o F admitted on 06/04/19 for Shortness of breath. Chief Complaint: [] Interval history: Ms. Venegas is a 63 year old F Patient presents the ED with shortness of breath. Has history of COPD on 2 L day and night. Patient was exposed to a sick grandchild recently. States over the past 4 days she is at increased shortness of breath and productive cough of which she thinks was clear sputum however this only is been less productive. In the ED she was evaluated tachypneic originally at 25 with mild tachycardia. She had a leukocytosis and a checks x-ray showed bilateral infiltrates. There is underlying pulmonary fibrosis. She is given breathing treatments with some improvement in her breathing. It was felt that she could not be treated on outpatient basis and thus hospitalization was requested. 3/4 Poor sleep last night. Reports cough shortness of breath. Tired. No other complaints. Review of Systems: denies headache/fever/chills/nausea/vomiting/chest or abdominal pain/diarrhea. Otherwise see above. - Constitutional Vitals: Vital Signs Temp Pulse Resp BP Pulse Ox 97.8 F 94 H 22 105/69 94 06/04/19 07:59 06/04/19 07:59 06/04/19 07:59 06/04/19 07:59 06/04/19 07:59 Period Temp Pulse Resp BP Sys/[place] Pulse Ox Last 24 Hr 97.8 F-98.9 F 85-118 22-30 93-146/55-97 71-100 Intake and Output 06/03/19 06/04/19 06/04/19 21:59 05:59 13:59 Intake Total 1000 100 Output Total 350 300 Balance 1000 -250 -300 Weight 63.049 kg 64.093 kg Intake & Output: Intake & Output 06/03/19 06/04/19 06/04/19 21:59 05:59 13:59 Intake Total 1000 100 Output Total 350 300 Balance 1000 -250 -300 Weight 63.049 kg 64.093 kg Intake: IV 1000 Lactated Ringers 1,000 ml @ 1000 Wide Open IV .Q0M ONE Rx#: [id number] Oral 100 Output: Void Amount 350 300 Other: Urine Color Straw Urine Odor Normal Stool Size Small Stool Color Brown Stool Consistency Loose Exam: General: Alert, Awake, No acute Distress Eyes/N/T: EOMI, Head/Neck: neck supple, CV: mildly tacky but regular No murmurs, Pulm: b/l diminished especially left base but improved, no wheezing, unlabored Abd: soft, nontender, +BS x4 Ext: no clubbing/cyanosis/edema Neuro: Alert, no focal deficits, moves all extremities, Skin: warm/dry Medical - PN: Obj Da - Labs CBC & Chem 7: 06/03/19 17:36 06/03/19 17:36 Labs: Abnormal Lab Results 06/03/19 06/03/19 17:36 17:36 WBC 19.1 H Hgb 10.8 L MCHC 30.1 L Plt Count 469 H Gran % 83.2 H Lymph % (Auto) 8.2 L Gran # 15.91 H [place] # (Auto) 1.31 H Chloride 91 L Carbon Dioxide 43 H* Alkaline Phosphatase 120 H C-Reactive Protein 18.1 H Albumin 3.1 L Globulin 4.3 H Albumin/Globulin Ratio 0.7 L Meds: Medications Acetaminophen (Tylenol) 650 mg PO Q6HP PRN PRN Reason: PAIN/FEVER > 101 Hydrocodone Bitart/Acetaminophen ([place] 5/325mg) 1 tab PO Q4-6HP PRN; Protocol PRN Reason: Per Pain Protocol Albuterol/Ipratropium (Duoneb) 3 ml NEB Q4HP PRN PRN Reason: Shortness Of Breath Albuterol/Ipratropium (Duoneb) 3 ml NEB Q8H [facility] Last Admin: 06/04/19 02:03 Dose: 3 ml Documented by: Chlordiazepoxide HCl (Librium) 25 mg PO Q4HP PRN PRN Reason: Alcohol Withdrawal Dextrose (Dextrose 50%) 0 ml IV UD PRN PRN Reason: Hypoglycemia Diagnostic Test (Pha) (Accu-Chek) 1 each FS ACHS [facility] Last Admin: 06/04/19 07:29 Dose: 1 each Documented by: Docusate Sodium (Colace) 100 mg PO BID [facility] Enoxaparin Sodium (Lovenox) 40 mg SQ DAILY [facility] Folic Acid (Folic Acid) 1 mg PO DAILY [facility] Glucose (Insta-Glucose) 15 gm PO PRN PRN PRN Reason: Hypoglycemia Potassium Chloride 40 meq/ (Dextrose) 520 mls @ 130 mls/hr IV UD PRN PRN Reason: Potassium < 3 Magnesium Sulfate (Magnesium Sulfate) 2 gm in 50 mls @ 50 mls/hr IV UD PRN PRN Reason: Magnesium </= 1.6 Ceftriaxone Sodium 2 gm/ (Dextrose) 50 mls @ 100 mls/hr IV Q24H [facility]; Protocol Last Admin: 06/04/19 02:04 Dose: Not Given Documented by: Azithromycin 500 mg/ Dextrose 250 mls @ 250 mls/hr IV Q24H [facility]; Protocol Stop: 06/06/19 02:00 Last Admin: 06/04/19 03:35 Dose: Not Given Documented by: Insulin Human Lispro (Humalog) 0 unit SQ ACHS [facility]; Protocol Last Admin: 06/04/19 07:51 Dose: 2 units Documented by: Iron Carb/Multivit/[place]/Folic Acid (Multivitamin W/Minerals) 1 tab PO DAILY [facility] Lactulose (Cephulac) 20 gm PO DAILYP PRN PRN Reason: Constipation Lorazepam (Ativan) 0 mg IV Q4HP PRN; Protocol PRN Reason: Alcohol Withdrawal Ondansetron HCl (Zofran) 4 mg IV Q4HP PRN PRN Reason: Nausea And Vomiting Polyethylene Glycol (Miralax) 17 gm PO DAILYP PRN PRN Reason: Constipation Potassium Chloride (Kdur) 40 meq PO UD PRN PRN Reason: Potssium is 3-3.5 Potassium Chloride (Kdur) 40 meq PO UD PRN PRN Reason: Potassium < 3 Senna (Senokot) 2 tab PO DAILYP PRN PRN Reason: Constipation Sodium Chloride (Saline Flush) 10 ml IV Q8 [facility] Last Admin: 06/04/19 02:05 Dose: 10 ml Documented by: Thiamine HCl (Vitamin B1) 100 mg PO QDAY [facility] Medical - PN: A/P - Time Spent With Patient Total time spent is greater than 50% in coordination of care (as documented) at patient's floor/unit and/or counseling patient: - Narrative A/P Narrative: A: *CAP: -leukocytosis, *COPD(2L NC@home)/pulmonary fibrosis: *acute on Chronic metabolic alkalosis: 2/2 above *Anemia, chronic: *HTN: *GERD: *Chronic abdominal pain: *Macular degeneration: *DM: P: -rocephin/azithro -pending SC/BC -awaiting labs -cont pulse ox -resp panel pending -acetazolamide -IS/Acapella -prn nebs -home O2 -pt/to -metformin/SSI -ppx: Lovenox Medical - PN: Qual - VTE Deep Vein Thrombosis/Pulmonary Embolism Present on Admission: No
[2019-06-04] MEDS ORDERED: MELATONIN 3 MG TABLET PO SCH (09:15)
[2019-06-04 09:35] LABS: Basophils # (Auto) 0.04 K/mcL (0.00-0.30); Basophils % (Auto) 0.2 % (0.0-2.0); Eosinophils # (Auto) 0 K/mcL (0.00-0.70); Eosinophils % (Auto) 0 % (0.0-7.0); Granulocytes % (Auto) 94.8 % (38.0-78.0); Hematocrit 33.5 % (34.1-44.9); Hemoglobin 9.7 g/dL (11.2-15.7); Lymphocytes # (Auto) 0.66 K/mcL (1.50-4.80); Lymphocytes % (Auto) 3.9 % (15.5-49.0); Mean Cell Volume 97.7 fL (80.0-100.0); Mean Platelet Volume 10.1 fL (7.4-10.4); Monocytes # (Auto) 0.18 K/mcL (0.10-0.90); Monocytes % (Auto) 1.1 % (1.0-12.0); Platelet Count 425 K/mcL (140-440); RBC 3.43 M/mcL (3.59-5.38); Red Cell Distribution Width 12.3 % (11.5-14.5); WBC 16.9 K/mcL (4.50-11.00)
[2019-06-04] MEDS: guaiFENesin 600 MG TAB.SR.12H PO SCH ×2 (09:59→21:19)
[2019-06-04] MEDS: THIAMINE 100 MG TABLET PO SCH (09:59)
[2019-06-04] MEDS: ASPIRIN 81 MG TAB.CHEW PO SCH (09:59)
[2019-06-04] MEDS: LOSARTAN 50 MG TABLET PO SCH (09:59)
[2019-06-04] MEDS: MULTIVIT,THER IRON,CA,FA & MIN 1 TABLET PO SCH (09:59)
[2019-06-04] MEDS: FOLIC ACID 1 MG TABLET PO SCH (10:00)
[2019-06-04] MEDS: amLODIPine 10 MG TABLET PO SCH (10:00)
[2019-06-04] MEDS: ENOXAPARIN 40 MG/0.4 ML SYRINGE SQ SCH (10:01)
[2019-06-04] MEDS: DOCUSATE SODIUM 100 MG CAPSULE PO SCH ×2 (10:03→21:19)
[2019-06-04 10:10] LABS: ALT/SGPT 8 U/l (0-40); AST/SGOT 10 U/l (0-37); Albumin 2.8 gm/dL (3.2-5.2); Albumin/Globulin Ratio 0.7 (1.0-2.3); Alkaline Phosphatase 122 U/L (39-117); Bilirubin,Direct < 0.2 mg/dL (0.0-0.3); Bilirubin,Total < 0.2 mg/dL (0.0-1.0); Blood Urea Nitrogen 23 mg/dl (8-23); Glomerular Filtration Rate 68; Glucose 157 mg/dL (70-105); Lactate Dehydrogenase 173 U/L (94-250); Phosphorous 4.3 mg/dL (2.7-4.5); Triglycerides 76 mg/dl (<150); Uric Acid 4.5 mg/dL (2.5-8.0)
[2019-06-04 10:14] LABS: Carbon Dioxide 41 mmol/L (22-30); Chloride 93 mmol/L (96-108)
[2019-06-04] MEDS: PANTOPRAZOLE 40 MG TABLET PO SCH (11:19)
[2019-06-04] MEDS: Budesonide/Formoterol Fumarate [Symbicort] 160-4.5 mcg Inhaler INH SCH ×2 (14:05→21:24)
[2019-06-04] MEDS: ACETAMINOPHEN 325 MG TABLET PO PRN (20:09)
[2019-06-04] MEDS: MONTELUKAST 10 MG TABLET PO SCH (21:18)
[2019-06-04] MEDS: metFORMIN 850 MG TABLET PO SCH (21:21)
[2019-06-05] MEDS: IPRATROPIUM/ALBUTEROL 3 ML AMPUL.NEB NEB SCH ×2 (00:27→11:35)
[2019-06-05] MEDS: IPRATROPIUM/ALBUTEROL 3 ML AMPUL.NEB NEB PRN ×4 (03:52→22:09)
[2019-06-05 04:10] LABS: Band Neutrophils % 6 % (0-10); Lymphocytes % 2 % (15-49); Platelet Estimate NORMAL (NORMAL); RBC Morphology NORMAL (NORMAL); Segmented Neutrophils % 92 % (38-78)
[2019-06-05 06:35] LABS: Basophils # (Auto) 0.06 K/mcL (0.00-0.30); Basophils % (Auto) 0.3 % (0.0-2.0); Eosinophils # (Auto) 0.11 K/mcL (0.00-0.70); Eosinophils % (Auto) 0.6 % (0.0-7.0); Granulocytes % (Auto) 83.4 % (38.0-78.0); Hematocrit 31.9 % (34.1-44.9); Hemoglobin 9.3 g/dL (11.2-15.7); Lymphocytes # (Auto) 2.16 K/mcL (1.50-4.80); Lymphocytes % (Auto) 10.9 % (15.5-49.0); Mean Cell Volume 96.7 fL (80.0-100.0); Mean Corpuscular HGB Conc 29.2 g/dL (31.0-36.0); Mean Platelet Volume 9.4 fL (7.4-10.4); Monocytes # (Auto) 0.96 K/mcL (0.10-0.90); Monocytes % (Auto) 4.8 % (1.0-12.0); Platelet Count 414 K/mcL (140-440); Red Cell Distribution Width 12.3 % (11.5-14.5); WBC 19.8 K/mcL (4.50-11.00)
[2019-06-05 06:50] LABS: Carbon Dioxide 39 mmol/L (22-30); Chloride 96 mmol/L (96-108); Glomerular Filtration Rate 68; Glucose 112 mg/dL (70-105)
[2019-06-05 06:51] LABS: Blood Urea Nitrogen 31 mg/dl (8-23)
[2019-06-05] MEDS: amLODIPine 10 MG TABLET PO SCH (07:31)
[2019-06-05] MEDS: ENOXAPARIN 40 MG/0.4 ML SYRINGE SQ SCH (07:31)
[2019-06-05] MEDS: PANTOPRAZOLE 40 MG TABLET PO SCH (07:32)
[2019-06-05] MEDS: ASPIRIN 81 MG TAB.CHEW PO SCH (07:32)
[2019-06-05] MEDS: FOLIC ACID 1 MG TABLET PO SCH (07:32)
[2019-06-05] MEDS: THIAMINE 100 MG TABLET PO SCH (07:32)
[2019-06-05] MEDS: MULTIVIT,THER IRON,CA,FA & MIN 1 TABLET PO SCH (07:32)
[2019-06-05] MEDS: DOCUSATE SODIUM 100 MG CAPSULE PO SCH ×2 (07:32→21:12)
[2019-06-05] MEDS: LOSARTAN 50 MG TABLET PO SCH (07:32)
[2019-06-05] MEDS: INSULIN LISPRO 1 UNIT/0.01 ML UNIT SQ SCH ×4 (07:33→21:30)
[2019-06-05] MEDS: 0.9 % SODIUM CHLORIDE 10 ML SYRINGE IV SCH ×2 (07:33→15:37)
[2019-06-05] MEDS: Budesonide/Formoterol Fumarate [Symbicort] 160-4.5 mcg Inhaler INH SCH ×2 (07:33→21:13)
[2019-06-05] MEDS: guaiFENesin 600 MG TAB.SR.12H PO SCH (07:33)
--- NOTE | 2019-06-05 07:55 | Internal Med Progress Note ---
Medical - PN: Subj Patient information: Note initiated : 06/05/19 at 7:50 am Service Date, if different from initiated Date: [] Patient: Lexus Venegas a 63 y/o F admitted on 06/04/19 for Shortness of breath. Chief Complaint: [] Interval history: Ms. Venegas is a 63 year old F Patient presents the ED with shortness of breath. Has history of COPD on 2 L day and night. Patient was exposed to a sick grandchild recently. States over the past 4 days she is at increased shortness of breath and productive cough of which she thinks was clear sputum however this only is been less productive. In the ED she was evaluated tachypneic originally at 25 with mild tachycardia. She had a leukocytosis and a checks x-ray showed bilateral infiltrates. There is underlying pulmonary fibrosis. She is given breathing treatments with some improvement in her breathing. It was felt that she could not be treated on outpatient basis and thus hospitalization was requested. 3/4 Poor sleep last night. Reports cough shortness of breath. Tired. No other complaints. 3/5 Slept little better last night. Admitted to headache still. Decreasing cough. Shortness of breath she says at present but much better than yesterday. She is on 1.5 L of nasal cannula and typically she is on 2 L at home. Review of Systems: denies fever/chills/nausea/vomiting/chest or abdominal pain/diarrhea. Otherwise see above. - Constitutional Vitals: Vital Signs Temp Pulse Resp BP Pulse Ox 98.6 F 96 H 20 113/68 96 06/05/19 07:42 06/05/19 07:42 06/05/19 07:42 06/05/19 07:42 06/05/19 07:42 Period Temp Pulse Resp BP Sys/[place] Pulse Ox Last 24 Hr 97.2 F-98.6 F 67-96 15-24 93-114/58-70 90-97 Intake and Output 06/04/19 06/05/19 06/05/19 21:59 05:59 13:59 Intake Total 880 550 Output Total 1600 600 Balance -720 -50 Weight 64.773 kg Intake & Output: Intake & Output 06/04/19 06/05/19 06/05/19 21:59 05:59 13:59 Intake Total 880 550 Output Total 1600 600 Balance -720 -50 Weight 64.773 kg Intake: Oral 880 550 Output: Void Amount 1600 600 Other: Meal Dinner Percent of Meal Consumed 50% Feeding Ability Independent Urine Appearance Clear Urine Color Pale Urine Odor Normal Exam: General: Alert, Awake, No acute Distress Eyes/N/T: EOMI, Head/Neck: neck supple, CV: RRR, No murmurs, Pulm: better aeration today, no wheezing, unlabored Abd: soft, nontender, +BS x4 Ext: no clubbing/cyanosis/edema Neuro: Alert, no focal deficits, moves all extremities, Skin: warm/dry Medical - PN: Obj Da - Labs CBC & Chem 7: 06/05/19 05:35 06/05/19 05:35 Labs: Abnormal Lab Results 06/05/19 06/05/19 06/05/19 05:35 05:35 05:35 WBC 19.8 H RBC 3.30 L Hgb 9.3 L Hct 31.9 L MCHC 29.2 L Plt Count Gran % 83.4 H Lymph % (Auto) 10.9 L Gran # 16.54 H Lymph # (Auto) [place] # (Auto) 0.96 H Seg Neutrophils % Lymphocytes % Chloride Carbon Dioxide 39 H BUN 31 H Glucose 112 H Alkaline Phosphatase C-Reactive Protein 5.2 H Albumin Globulin Albumin/Globulin Ratio 06/04/19 06/04/19 06/04/19 06:39 06:39 06:39 WBC 16.9 H RBC 3.43 L Hgb 9.7 L Hct 33.5 L MCHC 29.0 L Plt Count Gran % 94.8 H Lymph % (Auto) 3.9 L Gran # 16.01 H Lymph # (Auto) 0.66 L [place] # (Auto) Seg Neutrophils % 92 H Lymphocytes % 2 L Chloride 93 L Carbon Dioxide 41 H* BUN Glucose 157 H Alkaline Phosphatase 122 H C-Reactive Protein 13.0 H Albumin 2.8 L Globulin 4.0 H Albumin/Globulin Ratio 0.7 L 06/03/19 06/03/19 17:36 17:36 WBC 19.1 H RBC Hgb 10.8 L Hct MCHC 30.1 L Plt Count 469 H Gran % 83.2 H Lymph % (Auto) 8.2 L Gran # 15.91 H Lymph # (Auto) [place] # (Auto) 1.31 H Seg Neutrophils % Lymphocytes % Chloride 91 L Carbon Dioxide 43 H* BUN Glucose Alkaline Phosphatase 120 H C-Reactive Protein 18.1 H Albumin 3.1 L Globulin 4.3 H Albumin/Globulin Ratio 0.7 L Meds: Medications Acetaminophen (Tylenol) 650 mg PO Q6HP PRN PRN Reason: PAIN/FEVER > 101 Last Admin: 06/04/19 20:09 Dose: 650 mg Documented by: Hydrocodone Bitart/Acetaminophen ([place] 5/325mg) 1 tab PO Q4-6HP PRN; Protocol PRN Reason: Per Pain Protocol Albuterol/Ipratropium (Duoneb) 3 ml NEB Q4HP PRN PRN Reason: Shortness Of Breath Last Admin: 06/05/19 03:52 Dose: 3 ml Documented by: Albuterol/Ipratropium (Duoneb) 3 ml NEB Q8H [facility] Last Admin: 06/05/19 00:27 Dose: Not Given Documented by: Amlodipine Besylate (Norvasc) 5 mg PO QDAY [facility] Last Admin: 06/05/19 07:31 Dose: 5 mg Documented by: Aspirin (Aspirin) 81 mg PO QDAY [facility] Last Admin: 06/05/19 07:32 Dose: 81 mg Documented by: Chlordiazepoxide HCl (Librium) 25 mg PO Q4HP PRN PRN Reason: Alcohol Withdrawal Dextrose (Dextrose 50%) 0 ml IV UD PRN PRN Reason: Hypoglycemia Diagnostic Test (Pha) (Accu-Chek) 1 each FS ACHS [facility] Last Admin: 06/05/19 07:33 Dose: 1 each Documented by: Docusate Sodium (Colace) 100 mg PO BID [facility] Last Admin: 06/05/19 07:32 Dose: 100 mg Documented by: Enoxaparin Sodium (Lovenox) 40 mg SQ DAILY [facility] Last Admin: 06/05/19 07:31 Dose: 40 mg Documented by: Folic Acid (Folic Acid) 1 mg PO DAILY [facility] Last Admin: 06/05/19 07:32 Dose: 1 mg Documented by: Glucose (Insta-Glucose) 15 gm PO PRN PRN PRN Reason: Hypoglycemia Guaifenesin (Mucinex) 600 mg PO BID [facility] Last Admin: 06/05/19 07:33 Dose: Not Given Documented by: Potassium Chloride 40 meq/ (Dextrose) 520 mls @ 130 mls/hr IV UD PRN PRN Reason: Potassium < 3 Magnesium Sulfate (Magnesium Sulfate) 2 gm in 50 mls @ 50 mls/hr IV UD PRN PRN Reason: Magnesium </= 1.6 Ceftriaxone Sodium 2 gm/ (Dextrose) 50 mls @ 100 mls/hr IV Q24H [facility]; Protocol Last Admin: 06/04/19 14:29 Dose: 100 mls/hr Documented by: Azithromycin 500 mg/ Dextrose 250 mls @ 250 mls/hr IV Q24H [facility]; Protocol Stop: 06/06/19 02:00 Last Admin: 06/04/19 15:23 Dose: 250 mls/hr Documented by: Insulin Human Lispro (Humalog) 0 unit SQ ACHS [facility]; Protocol Last Admin: 06/05/19 07:33 Dose: Not Given Documented by: Iron Carb/Multivit/Spr[employer] Painting Machine [employer]/Folic Acid (Multivitamin W/Minerals) 1 tab PO DAILY [facility] Last Admin: 06/05/19 07:32 Dose: 1 tab Documented by: Lactulose (Cephulac) 20 gm PO DAILYP PRN PRN Reason: Constipation Lorazepam (Ativan) 0 mg IV Q4HP PRN; Protocol PRN Reason: Alcohol Withdrawal Losartan Potassium (Cozaar) 50 mg PO DAILY [facility] Last Admin: 06/05/19 07:32 Dose: 50 mg Documented by: Melatonin (Melatonin 3mg Tablet) 3 mg PO HSP [facility] Last Admin: 06/05/19 00:33 Dose: 1.5 mg Documented by: Metformin HCl (Glucophage) 850 mg PO QPM [facility] Last Admin: 06/04/19 21:21 Dose: 850 mg Documented by: Montelukast Sodium (Singular) 10 mg PO QPM [facility] Last Admin: 06/04/19 21:18 Dose: 10 mg Documented by: Ondansetron HCl (Zofran) 4 mg IV Q4HP PRN PRN Reason: Nausea And Vomiting Pantoprazole Sodium (Protonix) 40 mg PO QAMAC [facility] Last Admin: 06/05/19 07:32 Dose: 40 mg Documented by: Budesonide/Formoterol Fumarate [Symbicort] 160-4.5 Mcg Inhaler 1 dose INH Q12H [facility] Last Admin: 06/05/19 07:33 Dose: Not Given Documented by: Polyethylene Glycol (Miralax) 17 gm PO DAILYP PRN PRN Reason: Constipation Potassium Chloride (Kdur) 40 meq PO UD PRN PRN Reason: Potssium is 3-3.5 Potassium Chloride (Kdur) 40 meq PO UD PRN PRN Reason: Potassium < 3 Senna (Senokot) 2 tab PO DAILYP PRN PRN Reason: Constipation Sodium Chloride (Saline Flush) 10 ml IV Q8 [facility] Last Admin: 06/05/19 07:33 Dose: 10 ml Documented by: Thiamine HCl (Vitamin B1) 100 mg PO QDAY [facility] Last Admin: 06/05/19 07:32 Dose: 100 mg Documented by: Medical - PN: A/P - Time Spent With Patient Total time spent is greater than 50% in coordination of care (as documented) at patient's floor/unit and/or counseling patient: - Narrative A/P Narrative: A: *CAP: -leukocytosis improved but then worsened, she is afebrile and feels better today -resp viral panel neg *COPD(2L NC@home)/pulmonary fibrosis: ?acute component *acute on Chronic metabolic alkalosis: 2/2 above *Anemia, chronic: *HTN: *GERD: *Chronic abdominal pain: *Macular degeneration: *DM: P: -rocephin/azithro -pending SC/BC -IS/Acapella -prn nebs -home O2 -metformin/SSI -pt/to -ppx: Lovenox Medical - PN: Qual - VTE Deep Vein Thrombosis/Pulmonary Embolism Present on Admission: No
[2019-06-05] MEDS ORDERED: predniSONE 20 MG TABLET PO ONE (08:06)
[2019-06-05] MEDS ORDERED: methylPREDNISolone SOD SUCC 125 MG/2 ML VIAL IV SCH (09:00)
[2019-06-05 09:16] LABS: Band Neutrophils % 1 % (0-10); Lymphocytes % 15 % (15-49); Monocytes % (Manual) 3 % (1-12); Platelet Estimate NORMAL (NORMAL); RBC Morphology NORMAL (NORMAL); Segmented Neutrophils % 81 % (38-78)
[2019-06-05] MEDS: cefTRIAXone 2 GM in DEXTROSE 5% IN WATER 50 ML IV SCH (09:51)
[2019-06-05] MEDS: AZITHROMYCIN 500 MG in DEXTROSE 5% IN WATER 250 ML IV SCH (10:48)
--- NOTE | 2019-06-05 11:17 | Discharge Summary ---
Medical - DS: Prov Patient information: Note initiated : 06/05/19 at 11:14 am Service Date, if different from initiated Date: [] Patient: Lexus Venegas 63 y/o F admitted on 06/04/19 for Shortness of breath. Chief Complaint: [] Date of admission: 06/04/19 00:47 Primary care physician: Vic Ayala Consults: 06/03/19 Consult to Physician [CONS] Stat Comment: Consulting Provider: Ronnie Denny Reason For Exam: Physician to Consult 06/05/19 08:43 Consult to Physician [CONS] Routine Comment: Consulting Provider: Karlos Cobos Reason For Exam: overgrown toenails Medical - DS: Meds - Discharge Medications Prescriptions: Amoxicillin/Potassium Clav [Augmentin] 875 mg PO Q12H #6 tablet Lactobacillus [Culturelle] 1 cap PO BID #40 capsule Active and Home Medications: Home Medications Aspirin [Alona Chewable Aspirin] 81 mg PO QDAY 10/05/14 [History Confirmed 06/04/19 Last Taken 06/03/19 09:00] budesonide-formoterol HFA 160 mcg-4.5 mcg/actuation aerosol inhaler 1 puff INHALATION Q12H g 06/18/18 [History Confirmed 06/04/19 Last Taken 06/01/19 09:00] metformin 850 mg tablet 850 mg PO QPM tab 06/18/18 [History Confirmed 06/04/19 Last Taken 06/02/19 21:00] amlodipine 5 mg tablet 5 mg PO QDAY 90 Days #90 tab 10/07/18 [Rx Confirmed 06/04/19 Last Taken 06/03/19 09:00] pantoprazole 40 mg tablet,delayed release 40 mg PO QDAY 10/29/18 [History Confirmed 06/04/19 Last Taken 06/03/19 09:00] montelukast 10 mg tablet 10 mg PO QPM #90 tab 12/31/18 [Rx Confirmed 06/04/19 Last Taken 06/02/19 21:00] losartan 100 mg tablet 50 mg PO QDAY 90 Days #45 tab 04/15/19 [Rx Confirmed 06/04/19 Last Taken 06/03/19 09:00] Ferrous Gluconate [Iron] 236 mg PO DAILY 06/03/19 [History Confirmed 06/04/19 Last Taken 06/03/19 09:00] Albuterol Sulfate [Ventolin] 2 puff INH Q4HP PRN 06/04/19 [History Confirmed 06/04/19 Last Taken 06/03/19 16:00] Ipratropium/Albuterol Sulfate [Combivent] 2 puff INH Q2HP PRN 06/04/19 [History Confirmed 06/04/19 Last Taken 06/03/19 16:00] Ipratropium/Albuterol Sulfate [Iprat-Albut 0.5-3(2.5) mg/3 ml] 3 ml IH Q4HWA 06/04/19 [History Confirmed 06/04/19 Last Taken 06/03/19] Medical - DS: Hosp Hospital Course: Ms. Venegas is a 63 year old F Patient presents the ED with shortness of breath. Has history of COPD on 2 L day and night. Patient was exposed to a sick grandchild recently. States over the past 4 days she is at increased shortness of breath and productive cough of which she thinks was clear sputum however this only is been less productive. In the ED she was evaluated tachypneic originally at 25 with mild tachycardia. She had a leukocytosis and a checks x-ray showed bilateral infiltrates. There is underlying pulmonary fibrosis. She is given breathing treatments with some improvement in her breathing. It was felt that she could not be treated on outpatient basis and thus hospitalization was requested. 3/4 Poor sleep last night. Reports cough shortness of breath. Tired. No other complaints. 3/5 Slept little better last night. Admitted to headache still. Decreasing cough. Shortness of breath she says at present but much better than yesterday. She is on 1.5 L of nasal cannula and typically she is on 2 L at home. A: *CAP: -leukocytosis improved but then worsened, she is afebrile and feels better today -resp viral panel neg *COPD(2L NC@home)/pulmonary fibrosis: ?acute component *acute on Chronic metabolic alkalosis: 2/2 above *Anemia, chronic: *HTN: *GERD: *Chronic abdominal pain: *Macular degeneration: *DM: Discharge diagnosis: Pneumonia COPD chronic metabolic alkalosis chronic anemia hypertension Secondary discharge diagnosis: GERD macular degeneration chronic abdominal pain diabetes - Time Spent with Patient Total time spent providing and/or coordinating discharge services: Greater than 30 minutes Medical - DS: Exam - Constitutional Vitals: Vital Signs Temp Pulse Pulse Resp BP Pulse Ox 06/05/19 11:02 90 16 06/05/19 09:00 96 06/05/19 08:00 96 H 24 H 96 06/05/19 07:42 98.6 F 96 H 20 113/68 96 06/05/19 03:50 97.8 F 95 H 24 H 105/64 90 06/05/19 00:33 97.2 F 67 24 H 97/58 96 06/04/19 22:49 86 15 06/04/19 19:53 94 06/04/19 19:50 98.1 F 92 H 22 113/62 95 06/04/19 17:16 85 16 06/04/19 16:00 98.2 F 95 H 20 93/61 97 06/04/19 12:00 98.1 F 83 20 114/70 90 Intake and Output 06/04/19 06/05/19 06/05/19 21:59 05:59 13:59 Intake Total 1180 550 Output Total 1600 600 Balance -420 -50 Intake: IV 300 Zithromax 500 mg In Dextrose 5% 250 in Water 250 ml @ 250 mls/hr IV Q24H [facility] Rx#:[id number] Rocephin 2 gm In Dextrose 5% in 50 Water 50 ml @ 100 mls/hr IV Q24H [facility] Rx#:[id number] Oral 880 550 Output: Void Amount 1600 600 Other: Meal Dinner Percent of Meal Consumed 50% Feeding Ability Independent Urine Appearance Clear Urine Color Pale Urine Odor Normal Weight 64.773 kg Medical - DS: Data Labs on day of discharge: Labs from last 24 hours 06/05/19 06/05/19 06/05/19 05:35 05:35 05:35 WBC RBC Hgb Hct MCV MCH MCHC RDW Plt Count MPV Gran % Lymph % (Auto) [place] % (Auto) Eos % (Auto) Baso % (Auto) Gran # Lymph # (Auto) [place] # (Auto) Eos # (Auto) Baso # (Auto) Total Counted 100 Seg Neutrophils % 81 H Band Neutrophils % 1 Lymphocytes % 15 Monocytes % (Manual) 3 Platelet Estimate Normal RBC Morphology Normal Sodium 144 Potassium 3.9 Chloride 96 Carbon Dioxide 39 H Anion Gap 9.0 BUN 31 H Creatinine 0.9 GFR Calculation 68 Glucose 112 H Calcium 9.0 C-Reactive Protein 5.2 H 06/05/19 06/04/19 05:35 06:39 WBC 19.8 H RBC 3.30 L Hgb 9.3 L Hct 31.9 L MCV 96.7 MCH 28.2 MCHC 29.2 L RDW 12.3 Plt Count 414 MPV 9.4 Gran % 83.4 H Lymph % (Auto) 10.9 L [place] % (Auto) 4.8 Eos % (Auto) 0.6 Baso % (Auto) 0.3 Gran # 16.54 H Lymph # (Auto) 2.16 [place] # (Auto) 0.96 H Eos # (Auto) 0.11 Baso # (Auto) 0.06 Total Counted 100 Seg Neutrophils % 92 H Band Neutrophils % 6 Lymphocytes % 2 L Monocytes % (Manual) Platelet Estimate Normal RBC Morphology Normal Sodium Potassium Chloride Carbon Dioxide Anion Gap BUN Creatinine GFR Calculation Glucose Calcium C-Reactive Protein Preliminary micro results at discharge 06/03/19 19:25 Blood Culture - Preliminary Blood 06/03/19 19:15 Blood Culture - Preliminary Blood Medical - DS: A/P - Patient/Caregiver Discharge Instructions Activity: increase activity as tolerated Diet: Consistent Carbohydrate - Follow up Plan Follow up with: Vic Ayala PA-C [Primary Care Provider] - Disposition: Home Health Service Prognosis: Fair Rehab Potential: Fair Overall status at discharge: patient is progressing back to baseline Medical - DS: Qual - VTE Deep Vein Thrombosis/Pulmonary Embolism Present on Admission: No
[2019-06-05] MEDS ORDERED: VANCOMYCIN PER PHARMACY IV SCH (15:11)
[2019-06-05] MEDS: VANCOMYCIN 1,000 MG in 0.9 % SODIUM CHLORIDE 250 ML IV SCH (16:51)
[2019-06-05] MEDS: metFORMIN 850 MG TABLET PO SCH (21:00)
[2019-06-05] MEDS: MONTELUKAST 10 MG TABLET PO SCH (21:11)
[2019-06-05] MEDS: MUPIROCIN OINT 2% 22GM NARES SCH (23:30)
[2019-06-05] MEDS: ACETAMINOPHEN 325 MG TABLET PO PRN (23:36)
[2019-06-06] MEDS: 0.9 % SODIUM CHLORIDE 10 ML SYRINGE IV SCH ×4 (00:30→20:16)
[2019-06-06] MEDS: MELATONIN 3 MG TABLET PO SCH ×2 (00:37→23:34)
[2019-06-06 07:19] LABS: Hemoglobin 9.4 g/dL (11.2-15.7); Mean Cell Volume 95.2 fL (80.0-100.0); Mean Corpuscular HGB Conc 29.4 g/dL (31.0-36.0); Mean Platelet Volume 9.4 fL (7.4-10.4); Platelet Count 426 K/mcL (140-440); RBC 3.36 M/mcL (3.59-5.38); Red Cell Distribution Width 12.3 % (11.5-14.5); WBC 17.9 K/mcL (4.50-11.00)
--- NOTE | 2019-06-06 07:37 | Internal Med Progress Note ---
Medical - PN: Subj Patient information: Note initiated : 06/06/19 at 7:35 am Service Date, if different from initiated Date: [] Patient: Lexus Venegas a 63 y/o F admitted on 06/04/19 for Shortness of breath. Chief Complaint: [] Interval history: Ms. Venegas is a 63 year old F Patient presents the ED with shortness of breath. Has history of COPD on 2 L day and night. Patient was exposed to a sick grandchild recently. States over the past 4 days she is at increased shortness of breath and productive cough of which she thinks was clear sputum however this only is been less productive. In the ED she was evaluated tachypneic originally at 25 with mild tachycardia. She had a leukocytosis and a checks x-ray showed bilateral infiltrates. There is underlying pulmonary fibrosis. She is given breathing treatments with some improvement in her breathing. It was felt that she could not be treated on outpatient basis and thus hospitalization was requested. 3/4 Poor sleep last night. Reports cough shortness of breath. Tired. No other complaints. 3/5 Slept little better last night. Admitted to headache still. Decreasing cough. Shortness of breath she says at present but much better than yesterday. She is on 1.5 L of nasal cannula and typically she is on 2 L at home. 3/6 Continued cough. Shortness of breath but slowly improving. Overall feeling better. White blood cell count still elevated although mildly improved. Added Vanco yesterday given MRSA colonization and persistent leukocytosis. Review of Systems: denies fever/chills/nausea/vomiting/chest or abdominal pain/diarrhea. Otherwise see above. - Constitutional Vitals: Vital Signs Temp Pulse Resp BP Pulse Ox 97.6 F 80 20 104/61 94 06/06/19 04:09 06/06/19 04:09 06/06/19 04:09 06/06/19 04:09 06/06/19 04:09 Period Temp Pulse Resp BP Sys/[place] Pulse Ox Last 24 Hr 97.4 F-98.6 F 80-107 16-24 104-126/61-68 94-99 Intake and Output 06/05/19 06/06/19 06/06/19 21:59 05:59 13:59 Intake Total 550 505 Output Total 825 851 Balance -275 -346 Weight 64.455 kg Intake & Output: Intake & Output 06/05/19 06/06/19 06/06/19 21:59 05:59 13:59 Intake Total 550 505 Output Total 825 851 Balance -275 -346 Weight 64.455 kg Intake: Oral 550 505 Output: Void Amount 825 850 # of times incontinent of urine 1 Other: Meal Dinner Percent of Meal Consumed 100% Feeding Ability Independent Urine Color Bright Yellow # Bowel Movements 1 Exam: General: Alert, Awake, No acute Distress Eyes/N/T: EOMI, Head/Neck: neck supple, CV: RRR, No murmurs, Pulm: better aeration, mild rhonchi left base, no wheezing, unlabored Abd: soft, nontender, +BS x4 Ext: no clubbing/cyanosis, trace b/l LE edema Neuro: Alert, no focal deficits, moves all extremities, Skin: warm/dry Medical - PN: Obj Da - Labs CBC & Chem 7: 06/06/19 05:45 06/05/19 05:35 Labs: Abnormal Lab Results 06/06/19 06/05/19 06/05/19 05:45 05:35 05:35 WBC 17.9 H RBC 3.36 L Hgb 9.4 L Hct 32.0 L MCHC 29.4 L Plt Count Gran % Lymph % (Auto) Gran # Lymph # (Auto) [place] # (Auto) Seg Neutrophils % 81 H Lymphocytes % Chloride Carbon Dioxide 39 H BUN 31 H Glucose 112 H Alkaline Phosphatase C-Reactive Protein Albumin Globulin Albumin/Globulin Ratio 06/05/19 06/05/19 06/04/19 05:35 05:35 06:39 WBC 19.8 H RBC 3.30 L Hgb 9.3 L Hct 31.9 L MCHC 29.2 L Plt Count Gran % 83.4 H Lymph % (Auto) 10.9 L Gran # 16.54 H Lymph # (Auto) [place] # (Auto) 0.96 H Seg Neutrophils % 92 H Lymphocytes % 2 L Chloride Carbon Dioxide BUN Glucose Alkaline Phosphatase C-Reactive Protein 5.2 H Albumin Globulin Albumin/Globulin Ratio 06/04/19 06/04/19 06/03/19 06:39 06:39 17:36 WBC 16.9 H RBC 3.43 L Hgb 9.7 L Hct 33.5 L MCHC 29.0 L Plt Count Gran % 94.8 H Lymph % (Auto) 3.9 L Gran # 16.01 H Lymph # (Auto) 0.66 L [place] # (Auto) Seg Neutrophils % Lymphocytes % Chloride 93 L 91 L Carbon Dioxide 41 H* 43 H* BUN Glucose 157 H Alkaline Phosphatase 122 H 120 H C-Reactive Protein 13.0 H 18.1 H Albumin 2.8 L 3.1 L Globulin 4.0 H 4.3 H Albumin/Globulin Ratio 0.7 L 0.7 L 06/03/19 17:36 WBC 19.1 H RBC Hgb 10.8 L Hct MCHC 30.1 L Plt Count 469 H Gran % 83.2 H Lymph % (Auto) 8.2 L Gran # 15.91 H Lymph # (Auto) [place] # (Auto) 1.31 H Seg Neutrophils % Lymphocytes % Chloride Carbon Dioxide BUN Glucose Alkaline Phosphatase C-Reactive Protein Albumin Globulin Albumin/Globulin Ratio Meds: Medications Acetaminophen (Tylenol) 650 mg PO Q6HP PRN PRN Reason: PAIN/FEVER > 101 Last Admin: 06/05/19 23:36 Dose: 650 mg Documented by: Hydrocodone Bitart/Acetaminophen ([place] 5/325mg) 1 tab PO Q4-6HP PRN; Protocol PRN Reason: Per Pain Protocol Albuterol/Ipratropium (Duoneb) 3 ml NEB Q4HP PRN PRN Reason: Shortness Of Breath Last Admin: 06/05/19 22:09 Dose: 3 ml Documented by: Amlodipine Besylate (Norvasc) 5 mg PO QDAY [facility] Last Admin: 06/05/19 07:31 Dose: 5 mg Documented by: Aspirin (Aspirin) 81 mg PO QDAY [facility] Last Admin: 06/05/19 07:32 Dose: 81 mg Documented by: Chlordiazepoxide HCl (Librium) 25 mg PO Q4HP PRN PRN Reason: Alcohol Withdrawal Dextrose (Dextrose 50%) 0 ml IV UD PRN PRN Reason: Hypoglycemia Diagnostic Test (Pha) (Accu-Chek) 1 each FS ACHS [facility] Last Admin: 06/05/19 21:10 Dose: 1 each Documented by: Docusate Sodium (Colace) 100 mg PO BID [facility] Last Admin: 06/05/19 21:12 Dose: Not Given Documented by: Enoxaparin Sodium (Lovenox) 40 mg SQ DAILY [facility] Last Admin: 06/05/19 07:31 Dose: 40 mg Documented by: Folic Acid (Folic Acid) 1 mg PO DAILY [facility] Last Admin: 06/05/19 07:32 Dose: 1 mg Documented by: Glucose (Insta-Glucose) 15 gm PO PRN PRN PRN Reason: Hypoglycemia Potassium Chloride 40 meq/ (Dextrose) 520 mls @ 130 mls/hr IV UD PRN PRN Reason: Potassium < 3 Magnesium Sulfate (Magnesium Sulfate) 2 gm in 50 mls @ 50 mls/hr IV UD PRN PRN Reason: Magnesium </= 1.6 Ceftriaxone Sodium 2 gm/ (Dextrose) 50 mls @ 100 mls/hr IV Q24H [facility]; Protocol Last Admin: 06/05/19 09:51 Dose: 100 mls/hr Documented by: Vancomycin HCl 1,000 mg/ (Sodium Chloride) 250 mls @ 250 mls/hr IV Q12H [facility] Last Admin: 06/05/19 16:51 Dose: 250 mls/hr Documented by: Insulin Human Lispro (Humalog) 0 unit SQ ACHS [facility]; Protocol Last Admin: 06/05/19 21:30 Dose: 10 units Documented by: Iron Carb/Multivit/Code Enforcement Inspector/Folic Acid (Multivitamin W/Minerals) 1 tab PO DAILY [facility] Last Admin: 06/05/19 07:32 Dose: 1 tab Documented by: Lactulose (Cephulac) 20 gm PO DAILYP PRN PRN Reason: Constipation Losartan Potassium (Cozaar) 50 mg PO DAILY [facility] Last Admin: 06/05/19 07:32 Dose: 50 mg Documented by: Melatonin (Melatonin 3mg Tablet) 3 mg PO HS [facility] Last Admin: 06/06/19 00:37 Dose: 1.5 mg Documented by: Metformin HCl (Glucophage) 850 mg PO QPM [facility] Last Admin: 06/05/19 21:00 Dose: Not Given Documented by: Montelukast Sodium (Singular) 10 mg PO QPM [facility] Last Admin: 06/05/19 21:11 Dose: 10 mg Documented by: Mupirocin (Bactroban Oint 2%) 1 dose NARES BID [facility] Last Admin: 06/05/19 23:30 Dose: 1 dose Documented by: Ondansetron HCl (Zofran) 4 mg IV Q4HP PRN PRN Reason: Nausea And Vomiting Pantoprazole Sodium (Protonix) 40 mg PO QAMAC [facility] Last Admin: 06/05/19 07:32 Dose: 40 mg Documented by: Budesonide/Formoterol Fumarate [Symbicort] 160-4.5 Mcg Inhaler 1 dose INH Q12H [facility] Last Admin: 06/05/19 21:13 Dose: Not Given Documented by: Polyethylene Glycol (Miralax) 17 gm PO DAILYP PRN PRN Reason: Constipation Potassium Chloride (Kdur) 40 meq PO UD PRN PRN Reason: Potssium is 3-3.5 Potassium Chloride (Kdur) 40 meq PO UD PRN PRN Reason: Potassium < 3 Senna (Senokot) 2 tab PO DAILYP PRN PRN Reason: Constipation Sodium Chloride (Saline Flush) 10 ml IV Q8 [facility] Last Admin: 06/06/19 04:12 Dose: 10 ml Documented by: Thiamine HCl (Vitamin B1) 100 mg PO QDAY [facility] Last Admin: 06/05/19 07:32 Dose: 100 mg Documented by: Vancomycin HCl (Vancomycin Per Pharmacy) 1 [place] [facility] [place] Protocol Medical - PN: A/P - Time Spent With Patient Total time spent is greater than 50% in coordination of care (as documented) at patient's floor/unit and/or counseling patient: - Narrative A/P Narrative: A: *CAP: -leukocytosis now improving again, afebrile, -resp viral panel neg *COPD(2L NC@home)/pulmonary fibrosis: ?acute component *acute on Chronic metabolic alkalosis: 2/2 above *Anemia, chronic: *HTN: *GERD: *Chronic abdominal pain: *Macular degeneration: *DM: P: -rocephin/azithro, vanc started yesterday for MRSA colonization + and persistent leukocytosis, although steroid effect could also be confounding it -f/u CBC -IS/Acapella -prn nebs -home O2 -metformin/SSI -pt/to -likely d/c in AM -ppx: Lovenox Medical - PN: Qual - VTE Deep Vein Thrombosis/Pulmonary Embolism Present on Admission: No
[2019-06-06] MEDS: INSULIN LISPRO 1 UNIT/0.01 ML UNIT SQ SCH ×4 (08:03→20:30)
[2019-06-06 08:05] LABS: Eosinophils % (Manual) 1 % (0-7); Lymphocytes % 8 % (15-49); Monocytes % (Manual) 4 % (1-12); Platelet Estimate NORMAL (NORMAL); RBC Morphology NORMAL (NORMAL); Segmented Neutrophils % 87 % (38-78)
[2019-06-06] MEDS: cefTRIAXone 2 GM in DEXTROSE 5% IN WATER 50 ML IV SCH (08:08)
[2019-06-06] MEDS: IPRATROPIUM/ALBUTEROL 3 ML AMPUL.NEB NEB PRN ×3 (08:43→21:59)
[2019-06-06] MEDS: VANCOMYCIN 1,000 MG in 0.9 % SODIUM CHLORIDE 250 ML IV SCH ×2 (08:53→20:16)
[2019-06-06] MEDS: DOCUSATE SODIUM 100 MG CAPSULE PO SCH ×2 (09:38→20:23)
[2019-06-06] MEDS: MULTIVIT,THER IRON,CA,FA & MIN 1 TABLET PO SCH (09:38)
[2019-06-06] MEDS: amLODIPine 10 MG TABLET PO SCH (09:38)
[2019-06-06] MEDS: THIAMINE 100 MG TABLET PO SCH (09:38)
[2019-06-06] MEDS: ENOXAPARIN 40 MG/0.4 ML SYRINGE SQ SCH (09:38)
[2019-06-06] MEDS: FOLIC ACID 1 MG TABLET PO SCH (09:38)
[2019-06-06] MEDS: LOSARTAN 50 MG TABLET PO SCH (09:38)
[2019-06-06] MEDS: ASPIRIN 81 MG TAB.CHEW PO SCH (09:38)
[2019-06-06] MEDS: PANTOPRAZOLE 40 MG TABLET PO SCH (09:39)
[2019-06-06] MEDS: MUPIROCIN OINT 2% 22GM NARES SCH ×2 (09:39→20:15)
[2019-06-06] MEDS: Budesonide/Formoterol Fumarate [Symbicort] 160-4.5 mcg Inhaler INH SCH ×2 (09:56→20:23)
[2019-06-06] MEDS: MONTELUKAST 10 MG TABLET PO SCH (20:15)
[2019-06-06] MEDS: metFORMIN 850 MG TABLET PO SCH (20:16)
[2019-06-07] MEDS: 0.9 % SODIUM CHLORIDE 10 ML SYRINGE IV SCH ×3 (04:23→20:58)
[2019-06-07] MEDS: INSULIN LISPRO 1 UNIT/0.01 ML UNIT SQ SCH ×4 (07:18→21:09)
[2019-06-07 07:43] LABS: Basophils # (Auto) 0.06 K/mcL (0.00-0.30); Basophils % (Auto) 0.4 % (0.0-2.0); Eosinophils # (Auto) 0.19 K/mcL (0.00-0.70); Eosinophils % (Auto) 1.4 % (0.0-7.0); Hematocrit 31.5 % (34.1-44.9); Hemoglobin 9.2 g/dL (11.2-15.7); Lymphocytes # (Auto) 2.36 K/mcL (1.50-4.80); Lymphocytes % (Auto) 16.9 % (15.5-49.0); Mean Cell Volume 96.9 fL (80.0-100.0); Mean Corpuscular HGB Conc 29.2 g/dL (31.0-36.0); Mean Platelet Volume 9.6 fL (7.4-10.4); Monocytes # (Auto) 0.88 K/mcL (0.10-0.90); Monocytes % (Auto) 6.3 % (1.0-12.0); Platelet Count 393 K/mcL (140-440); RBC 3.25 M/mcL (3.59-5.38); Red Cell Distribution Width 12.4 % (11.5-14.5)
[2019-06-07] MEDS: PANTOPRAZOLE 40 MG TABLET PO SCH (07:52)
[2019-06-07] MEDS: IPRATROPIUM/ALBUTEROL 3 ML AMPUL.NEB NEB PRN ×3 (07:56→21:19)
[2019-06-07] MEDS: MULTIVIT,THER IRON,CA,FA & MIN 1 TABLET PO SCH (09:36)
[2019-06-07] MEDS: MUPIROCIN OINT 2% 22GM NARES SCH ×2 (09:36→20:54)
[2019-06-07] MEDS: FOLIC ACID 1 MG TABLET PO SCH (09:36)
[2019-06-07] MEDS: THIAMINE 100 MG TABLET PO SCH (09:36)
[2019-06-07] MEDS: ASPIRIN 81 MG TAB.CHEW PO SCH (09:36)
[2019-06-07] MEDS: DOCUSATE SODIUM 100 MG CAPSULE PO SCH ×2 (09:36→20:57)
[2019-06-07] MEDS: amLODIPine 10 MG TABLET PO SCH (09:36)
[2019-06-07] MEDS: cefTRIAXone 2 GM in DEXTROSE 5% IN WATER 50 ML IV SCH (09:36)
[2019-06-07] MEDS: ENOXAPARIN 40 MG/0.4 ML SYRINGE SQ SCH (09:37)
[2019-06-07] MEDS: LOSARTAN 50 MG TABLET PO SCH (09:37)
[2019-06-07] MEDS: Budesonide/Formoterol Fumarate [Symbicort] 160-4.5 mcg Inhaler INH SCH ×2 (09:37→20:58)
[2019-06-07] MEDS: VANCOMYCIN 1,000 MG in 0.9 % SODIUM CHLORIDE 250 ML IV SCH ×2 (10:30→20:55)
--- NOTE | 2019-06-07 16:11 | Internal Med Progress Note ---
Medical - PN: Subj Patient information: Note initiated : 06/07/19 at 3:55 pm Service Date, if different from initiated Date: [] Patient: Lexus Venegas a 63 y/o F admitted on 06/04/19 for Shortness of breath. Chief Complaint: [] Interval history: Ms. Venegas is a 63 year old F Patient presents the ED with shortness of breath. Has history of COPD on 2 L day and night. Patient was exposed to a sick grandchild recently. States over the past 4 days she is at increased shortness of breath and productive cough of which she thinks was clear sputum however this only is been less productive. In the ED she was evaluated tachypneic originally at 25 with mild tachycardia. She had a leukocytosis and a checks x-ray showed bilateral infiltrates. There is underlying pulmonary fibrosis. She is given breathing treatments with some improvement in her breathing. It was felt that she could not be treated on outpatient basis and thus hospita lization was requested. 3/4 Poor sleep last night. Reports cough shortness of breath. Tired. No other complaints. 3 Slept little better last night. Admitted to headache still. Decreasing cough. Shortness of breath she says at present but much better than yesterday. She is on 1.5 L of nasal cannula and typically she is on 2 L at home. 3/ Continued cough. Shortness of breath but slowly improving. Overall feeling better. White blood cell count still elevated although mildly improved. Added Vanco yesterday given MRSA colonization and persistent leukocytosis. 3/ Pt still complains of cough. But she admits that she feels better. She still has leukcytosis, 14.o She is on vanc and ceftriaxone She is on home oxygen 2L Review of Systems: denies fever/chills/nausea/vomiting/chest or abdominal pain/diarrhea. Otherwise see above. - Constitutional Vitals: Vital Signs Temp Pulse Resp BP Pulse Ox 98.1 F 92 H 18 125/67 95 06/07/19 15:32 06/07/19 15:32 06/07/19 15:32 06/07/19 15:32 06/07/19 15:32 Period Temp Pulse Resp BP Sys/[place] Pulse Ox Last 24 Hr 97.0 F-98.7 F 81-98 14-20 96-126/59-75 92-100 Intake and Output 06/07/19 06/07/19 06/07/19 05:59 13:59 21:59 Intake Total 550 300 Output Total 600 Balance -50 300 Intake & Output: Intake & Output 06/07/19 06/07/19 06/07/19 05:59 13:59 21:59 Intake Total 550 300 Output Total 600 Balance -50 300 Intake: IV 250 300 Vancomycin 1,000 mg In Sodium 250 250 Chloride 0.9% 250 ml @ 250 mls/ hr IV Q12H [facility] Rx#:[id number] Rocephin 2 gm In Dextrose 5% in 50 Water 50 ml @ 100 mls/hr IV Q24H [facility] Rx#:[id number] Oral 300 Output: Void Amount 600 Other: Urine Appearance Clear Clear Urine Color Dark Yellow Dark Yellow Urine Odor Normal Stool Size Large Large Stool Color Brown Brown Stool Consistency Soft Soft # Voids 1 # Bowel Movements 1 - Additional findings Additional findings: General: Alert, Awake, NAD Eyes/N/T: EOMI, Head/Neck: neck supple, CV: RRR, No murmurs, Lung: better aeration, mild rhonchi left base, no wheezing, unlabored Abd: soft, nontender, +BS x4 Ext: no clubbing/cyanosis, trace b/l LE edema Neuro: Alert, no focal deficits, moves all extremities, Skin: warm/dry Psych: normal mood Medical - PN: Obj Da - Labs CBC & Chem 7: 06/07/19 05:45 06/05/19 05:35 Labs: Abnormal Lab Results 06/07/19 06/06/19 06/05/19 05:45 05:45 05:35 WBC 14.0 H 17.9 H RBC 3.25 L 3.36 L Hgb 9.2 L 9.4 L Hct 31.5 L 32.0 L MCHC 29.2 L 29.4 L Gran % Lymph % (Auto) Gran # 10.47 H [place] # (Auto) Seg Neutrophils % 87 H 81 H Lymphocytes % 8 L Carbon Dioxide BUN Glucose C-Reactive Protein 06/05/19 06/05/19 06/05/19 05:35 05:35 05:35 WBC 19.8 H RBC 3.30 L Hgb 9.3 L Hct 31.9 L MCHC 29.2 L Gran % 83.4 H Lymph % (Auto) 10.9 L Gran # 16.54 H [place] # (Auto) 0.96 H Seg Neutrophils % Lymphocytes % Carbon Dioxide 39 H BUN 31 H Glucose 112 H C-Reactive Protein 5.2 H 06/04/19 06:39 WBC RBC Hgb Hct MCHC Gran % Lymph % (Auto) Gran # [place] # (Auto) Seg Neutrophils % 92 H Lymphocytes % 2 L Carbon Dioxide BUN Glucose C-Reactive Protein Meds: Medications Acetaminophen (Tylenol) 650 mg PO Q6HP PRN PRN Reason: PAIN/FEVER > 101 Last Admin: 06/05/19 23:36 Dose: 650 mg Documented by: Hydrocodone Bitart/Acetaminophen ([place] 5/325mg) 1 tab PO Q4-6HP PRN; Protocol PRN Reason: Per Pain Protocol Albuterol/Ipratropium (Duoneb) 3 ml NEB Q4HP PRN PRN Reason: Shortness Of Breath Last Admin: 06/07/19 07:56 Dose: 3 ml Documented by: Amlodipine Besylate (Norvasc) 5 mg PO QDAY [facility] Last Admin: 06/07/19 09:36 Dose: 5 mg Documented by: Aspirin (Aspirin) 81 mg PO QDAY [facility] Last Admin: 06/07/19 09:36 Dose: 81 mg Documented by: Chlordiazepoxide HCl (Librium) 25 mg PO Q4HP PRN PRN Reason: Alcohol Withdrawal Dextrose (Dextrose 50%) 0 ml IV UD PRN PRN Reason: Hypoglycemia Diagnostic Test (Pha) (Accu-Chek) 1 each FS ACHS [facility] Last Admin: 06/07/19 11:30 Dose: 1 each Documented by: Docusate Sodium (Colace) 100 mg PO BID [facility] Last Admin: 06/07/19 09:36 Dose: 100 mg Documented by: Enoxaparin Sodium (Lovenox) 40 mg SQ DAILY [facility] Last Admin: 06/07/19 09:37 Dose: 40 mg Documented by: Folic Acid (Folic Acid) 1 mg PO DAILY [facility] Last Admin: 06/07/19 09:36 Dose: 1 mg Documented by: Glucose (Insta-Glucose) 15 gm PO PRN PRN PRN Reason: Hypoglycemia Potassium Chloride 40 meq/ (Dextrose) 520 mls @ 130 mls/hr IV UD PRN PRN Reason: Potassium < 3 Magnesium Sulfate (Magnesium Sulfate) 2 gm in 50 mls @ 50 mls/hr IV UD PRN PRN Reason: Magnesium </= 1.6 Ceftriaxone Sodium 2 gm/ (Dextrose) 50 mls @ 100 mls/hr IV Q24H [facility]; Protocol Last Infusion: 06/07/19 10:06 Dose: Infused Documented by: Vancomycin HCl 1,000 mg/ (Sodium Chloride) 250 mls @ 250 mls/hr IV Q12H [facility] Last Infusion: 06/07/19 11:30 Dose: Infused Documented by: Insulin Human Lispro (Humalog) 0 unit SQ ACHS [facility]; Protocol Last Admin: 06/07/19 11:30 Dose: Not Given Documented by: Iron Carb/Multivit/[place]/Folic Acid (Multivitamin W/Minerals) 1 tab PO DAILY [facility] Last Admin: 06/07/19 09:36 Dose: 1 tab Documented by: Lactulose (Cephulac) 20 gm PO DAILYP PRN PRN Reason: Constipation Losartan Potassium (Cozaar) 50 mg PO DAILY [facility] Last Admin: 06/07/19 09:37 Dose: 50 mg Documented by: Melatonin (Melatonin 3mg Tablet) 3 mg PO HS [facility] Last Admin: 06/06/19 23:34 Dose: 3 mg Documented by: Metformin HCl (Glucophage) 850 mg PO QPM [facility] Last Admin: 06/06/19 20:16 Dose: 850 mg Documented by: Montelukast Sodium (Singular) 10 mg PO QPM [facility] Last Admin: 06/06/19 20:15 Dose: 10 mg Documented by: Mupirocin (Bactroban Oint 2%) 1 dose NARES BID [facility] Last Admin: 06/07/19 09:36 Dose: 1 dose Documented by: Ondansetron HCl (Zofran) 4 mg IV Q4HP PRN PRN Reason: Nausea And Vomiting Pantoprazole Sodium (Protonix) 40 mg PO QAMAC [facility] Last Admin: 06/07/19 07:52 Dose: 40 mg Documented by: Budesonide/Formoterol Fumarate [Symbicort] 160-4.5 Mcg Inhaler 1 dose INH Q12H [facility] Last Admin: 06/07/19 09:37 Dose: Not Given Documented by: Polyethylene Glycol (Miralax) 17 gm PO DAILYP PRN PRN Reason: Constipation Potassium Chloride (Kdur) 40 meq PO UD PRN PRN Reason: Potssium is 3-3.5 Potassium Chloride (Kdur) 40 meq PO UD PRN PRN Reason: Potassium < 3 Senna (Senokot) 2 tab PO DAILYP PRN PRN Reason: Constipation Sodium Chloride (Saline Flush) 10 ml IV Q8 [facility] Last Admin: 06/07/19 13:39 Dose: 10 ml Documented by: Thiamine HCl (Vitamin B1) 100 mg PO QDAY [facility] Last Admin: 06/07/19 09:36 Dose: 100 mg Documented by: Vancomycin HCl (Vancomycin Per Pharmacy) 1 order IV UD [facility]; Protocol Medical - PN: A/P - Time Spent With Patient Total time spent is greater than 50% in coordination of care (as documented) at patient's floor/unit and/or counseling patient: - Narrative A/P Narrative: Assessment: 1. CAP: 2. COPD(2L NC@home)/pulmonary fibrosis: ?acute component 3. acute on Chronic metabolic alkalosis: 2/2 above 4. Anemia, chronic: 5. HTN: 6. GERD: 7. Chronic abdominal pain: 8. Macular degeneration: 9. DM: Plan: 1. Continue rocephin/azithro, vanc started on 06/04 for MRSA colonization + and persistent leukocytosis, although steroid effect could also be confounding it pulse ox and oxygen Inhalers 2. IS/Acapella 3. Diabetic diet, continue metformin/SSI 4. pt/ot 5. ppx: Lovenox Deposition: home, likely AM Medical - PN: Qual - VTE Deep Vein Thrombosis/Pulmonary Embolism Present on Admission: No
[2019-06-07] MEDS: MONTELUKAST 10 MG TABLET PO SCH (20:55)
[2019-06-07] MEDS: metFORMIN 850 MG TABLET PO SCH (20:55)
[2019-06-07] MEDS: MELATONIN 3 MG TABLET PO SCH (23:28)
[2019-06-08] MEDS: IPRATROPIUM/ALBUTEROL 3 ML AMPUL.NEB NEB PRN ×2 (05:30→08:54)
[2019-06-08] MEDS: 0.9 % SODIUM CHLORIDE 10 ML SYRINGE IV SCH ×2 (05:37→15:06)
[2019-06-08] MEDS: INSULIN LISPRO 1 UNIT/0.01 ML UNIT SQ SCH ×2 (08:12→12:23)
[2019-06-08] MEDS: PANTOPRAZOLE 40 MG TABLET PO SCH (08:12)
--- NOTE | 2019-06-08 11:04 | Discharge Summary ---
Medical - DS: Prov Patient information: Note initiated : 06/08/19 at 11:02 am Service Date, if different from initiated Date: [] Patient: Lexus Venegas a 63 y/o F admitted on 06/04/19 for Shortness of breath. Chief Complaint: [] Refer to by Ronnie Denny D.O.> 06/03/19 Ms. Venegas is a 63 year old F Patient presents the ED with shortness of breath. Has history of COPD on 2 L day and night. Patient was exposed to a sick grandchild recently. States over the past 4 days she is at increased shortness of breath and productive cough of which she thinks was clear sputum however this only is been less productive. In the ED she was evaluated tachypneic originally at 25 with mild tachycardia. She had a leukocytosis and a checks x-ray showed bilateral infiltrates. There is underlying pulmonary fibrosis. She is given breathing treatments with some improvement in her breathing. It was felt that she could not be treated on outpatient basis and thus hospitalization was requested. Date of admission: 06/04/19 00:47 Discharge date: 06/08/19 Primary care physician: Vic Ayala Consults: 06/03/19 Consult to Physician [CONS] Stat Comment: Consulting Provider: Ronnie Denny Reason For Exam: Physician to Consult 06/05/19 08:43 Consult to Physician [CONS] Routine Comment: Consulting Provider: Karlos Cobos Reason For Exam: overgrown toenails Medical - DS: Meds - Discharge Medications Prescriptions: Amoxicillin/Potassium Clav [Augmentin] 875 mg PO Q12H #6 tab Transmission Status: Received by [facility] Lactobacillus [Culturelle] 1 cap PO BID #40 cap Transmission Status: Received by [facility] Active and Home Medications: Home Medications Aspirin [Alona Chewable Aspirin] 81 mg PO QDAY 10/05/14 [History Confirmed 06/04/19 Last Taken 06/03/19 09:00] budesonide-formoterol HFA 160 mcg-4.5 mcg/actuation aerosol inhaler 1 puff INHALATION Q12H g 06/18/18 [History Confirmed 06/04/19 Last Taken 06/01/19 09:00] metformin 850 mg tablet 850 mg PO QPM tab 06/18/18 [History Confirmed 06/04/19 Last Taken 06/02/19 21:00] amlodipine 5 mg tablet 5 mg PO QDAY 90 Days #90 tab 10/07/18 [Rx Confirmed 06/04/19 Last Taken 06/03/19 09:00] pantoprazole 40 mg tablet,delayed release 40 mg PO QDAY 10/29/18 [History Confirmed 06/04/19 Last Taken 06/03/19 09:00] montelukast 10 mg tablet 10 mg PO QPM #90 tab 12/31/18 [Rx Confirmed 06/04/19 Last Taken 06/02/19 21:00] losartan 100 mg tablet 50 mg PO QDAY 90 Days #45 tab 04/15/19 [Rx Confirmed 06/04/19 Last Taken 06/03/19 09:00] Ferrous Gluconate [Iron] 236 mg PO DAILY 06/03/19 [History Confirmed 06/04/19 Last Taken 06/03/19 09:00] Albuterol Sulfate [Ventolin] 2 puff INH Q4HP PRN 06/04/19 [History Confirmed 06/04/19 Last Taken 06/03/19 16:00] Ipratropium/Albuterol Sulfate [Combivent] 2 puff INH Q2HP PRN 06/04/19 [History Confirmed 06/04/19 Last Taken 06/03/19 16:00] Ipratropium/Albuterol Sulfate [Iprat-Albut 0.5-3(2.5) mg/3 ml] 3 ml IH Q4HWA 06/04/19 [History Confirmed 06/04/19 Last Taken 06/03/19] Amoxicillin/Potassium Clav [Augmentin] 875 mg PO Q12H #6 tab 06/05/19 [Rx Last T aken Unknown] Lactobacillus [Culturelle] 1 cap PO BID #40 cap 06/05/19 [Rx Last Taken Unknown] Medical - DS: Hosp Hospital Course: Ms. Venegas is a 63 year old F Patient presents the ED with shortness of breath. Has history of COPD on 2 L day and night. Patient was exposed to a sick grandchild recently. States over the past 4 days she is at increased shortness of breath and productive cough of which she thinks was clear sputum however this only is been less productive. In the ED she was evaluated tachypneic originally at 25 with mild tachycardia. She had a leukocytosis and a checks x-ray showed bilateral infiltrates. There is underlying pulmonary fibrosis. She is given breathing treatments with some improvement in her breathing. It was felt that she could not be treated on outpatient basis and thus hospitalization was requested. 3/4 Poor sleep last night. Reports cough shortness of breath. Tired. No other complaints. 3 Slept little better last night. Admitted to headache still. Decreasing cough. Shortness of breath she says at present but much better than yesterday. She is on 1.5 L of nasal cannula and typically she is on 2 L at home. 06/05 Continued cough. Shortness of breath but slowly improving. Overall feeling better. White blood cell count still elevated although mildly improved. Added Vanco yesterday given MRSA colonization and persistent leukocytosis. 06/06 Pt still complains of cough. But she admits that she feels better. She still has leukcytosis, 14.o She is on vanc and ceftriaxone She is on home oxygen 2L 06/07 Pt feels much better today. Vital signs are stable. She is on home oxygen 2L. She is back to baseline level 2L NC. A: *CAP: -leukocytosis improved, she is afebrile and feels better today -resp viral panel neg *COPD(2L NC@home)/pulmonary fibrosis: ?acute component *acute on Chronic metabolic alkalosis: 2/2 above *Anemia, chronic: *HTN: *GERD: *Chronic abdominal pain: *Macular degeneration: *DM: MRSA screen positive. She has been treated with iv ceftriaxone and vanco. She will be discharged to home with po azithromy and topical mupirocin. She needs to f/u with pcp and house wirer helper. Call PCP for medical issues. Discharge diagnosis: CAP Secondary discharge diagnosis: 2. COPD(2L NC@home)/pulmonary fibrosis: ?acute component 3. acute on Chronic metabolic alkalosis: 2/2 above 4. Anemia, chronic: 5. HTN: 6. GERD: 7. Chronic abdominal pain: 8. Macular degeneration: 9. DM: - Time Spent with Patient Total time spent providing and/or coordinating discharge services: Medical - DS: Exam - Constitutional Vitals: Vital Signs Temp Pulse Pulse Resp BP BP Pulse Ox 06/08/19 08:55 103 H 17 06/08/19 06:58 97.9 F 80 16 113/69 97 06/08/19 04:16 97.2 F 82 16 127/63 100 06/07/19 23:25 98.3 F 87 20 148/81 94 06/07/19 19:55 98.6 F 96 H 20 121/62 96 06/07/19 16:05 53 L 19 06/07/19 15:32 98.1 F 92 H 18 125/67 95 06/07/19 11:57 97.0 F 85 16 112/65 98 Intake and Output 06/07/19 06/08/19 06/08/19 20:59 05:59 13:59 Intake Total Output Total Balance Intake: IV Vancomycin 1,000 mg In Sodium Chloride 0.9% 250 ml @ 250 mls/ hr IV Q12H [facility] Rx#:[id number] Oral Output: Void Amount Other: Meal Percent of Meal Consumed Feeding Ability Urine Appearance Urine Color Stool Size Stool Color Stool Consistency # Bowel Movements Weight - Other Additional findings: General: Alert, Awake, NAD Eyes/N/T: EOMI, Head/Neck: neck supple, CV: RRR, No murmurs, Lung: better aeration, no rhonchi or wheezing, unlabored Abd: soft, nontender, +BS x4 Ext: no clubbing/cyanosis, trace b/l LE edema Neuro: Alert, no focal deficits, moves all extremities, Skin: warm/dry Psych: normal mood Medical - DS: Data Labs on day of discharge: Preliminary micro results at discharge 06/03/19 19:25 Blood Culture - Preliminary Blood 06/03/19 19:15 Blood Culture - Preliminary Blood Medical - DS: A/P - Patient/Caregiver Discharge Instructions Activity: increase activity as tolerated Diet: Cardiac, Consistent Carbohydrate Additional Instructions: f/u with pcp in 3 days and house wirer helper in 1 week Prescriptions: Azithromycin 250 mg PO DAILY 5 Days #5 tab Transmission Status: Pending to [facility] Mupirocin Oint 2% [Bactroban Oint 2%] 1 dose NARES BID 5 Days #1 tube Transmission Status: Pending to [facility] Lactobacillus [Culturelle] 1 cap PO BID #40 cap Transmission Status: Received by [facility] - Follow up Plan Follow up with: pulmonology [Other] (in one week) Vic Ayala PA-C [Primary Care Provider] - (in 3 days) Disposition: Home Health Service Prognosis: Fair Rehab Potential: Good Medical - DS: Qual - VTE Deep Vein Thrombosis/Pulmonary Embolism Present on Admission: No
[2019-06-08] MEDS: THIAMINE 100 MG TABLET PO SCH (11:10)
[2019-06-08] MEDS: LOSARTAN 50 MG TABLET PO SCH (11:10)
[2019-06-08] MEDS: ENOXAPARIN 40 MG/0.4 ML SYRINGE SQ SCH (11:10)
[2019-06-08] MEDS: MULTIVIT,THER IRON,CA,FA & MIN 1 TABLET PO SCH (11:10)
[2019-06-08] MEDS: ASPIRIN 81 MG TAB.CHEW PO SCH (11:11)
[2019-06-08] MEDS: DOCUSATE SODIUM 100 MG CAPSULE PO SCH (11:11)
[2019-06-08] MEDS: amLODIPine 10 MG TABLET PO SCH (11:11)
[2019-06-08] MEDS: FOLIC ACID 1 MG TABLET PO SCH (11:11)
[2019-06-08] MEDS: MUPIROCIN OINT 2% 22GM NARES SCH (11:12)
[2019-06-08] MEDS: Budesonide/Formoterol Fumarate [Symbicort] 160-4.5 mcg Inhaler INH SCH (11:12)
[2019-06-08] MEDS: VANCOMYCIN 1,000 MG in 0.9 % SODIUM CHLORIDE 250 ML IV SCH (11:13)
[2019-06-08] MEDS: cefTRIAXone 2 GM in DEXTROSE 5% IN WATER 50 ML IV SCH (11:13)
--- NOTE | 2019-06-30 15:30 | Orthopedic Consult Note ---
History of Present Illness - HPI Patient information: Note initiated : 06/30/19 at 3:28 pm Service Date, if different from initiated Date: [] Patient: Lexus Venegas 63 y/o F admitted on 06/04/19 for Shortness of breath. Chief Complaint: [fungal nails] Consult date: 06/05/19 Requesting physician: Ronnie Denny Consult reason: other (fungal nails ) History of present illness: severe, untreated nails Medications and Allergies Home Medications Medication Instructions Recorded Confirmed Type Aspirin [Alona Chewable Aspirin] 81 mg PO QDAY 10/05/14 06/04/19 History budesonide-formoterol HFA 160 1 puff INHALATION Q12H g 06/18/18 06/04/19 History mcg-4.5 mcg/actuation aerosol inhaler metformin 850 mg tablet 850 mg PO QPM tab 06/18/18 06/04/19 History pantoprazole 40 mg tablet,delayed 40 mg PO QDAY 10/29/18 06/04/19 History release montelukast 10 mg tablet 10 mg PO QPM #90 tab 12/31/18 06/04/19 Rx losartan 100 mg tablet 50 mg PO QDAY 90 Days #45 tab 04/15/19 06/04/19 Rx Ferrous Gluconate [Iron] 236 mg PO DAILY 06/03/19 06/04/19 History Albuterol Sulfate [Ventolin] 2 puff INH Q4HP PRN 06/04/19 06/04/19 History Ipratropium/Albuterol Sulfate 2 puff INH Q2HP PRN 06/04/19 06/04/19 History [Combivent] Ipratropium/Albuterol Sulfate 3 ml IH Q4HWA 06/04/19 06/04/19 History [Iprat-Albut 0.5-3(2.5) mg/3 ml] Lactobacillus [Culturelle] 1 cap PO BID #40 cap 06/05/19 Rx amlodipine 5 mg tablet 5 mg PO QDAY 90 Days #90 tab 06/23/19 Rx Allergies Allergy/AdvReac Type Severity Reaction Status Date / Time lisinopril Allergy Severe Swelling Verified 06/04/19 01:25 of Lip/Tongue/Throat lorazepam AdvReac Mild aggressive Verified 06/04/19 01:25 Physical Examination - Ankle & Foot bilateral Ankle appearance: other (long nails, fungal in nature, yellow, thickened. Contacting other toes and areas of the foot) Assessment and Plan (1) Onychomycosis Status: Acute - Narrative A/P Narrative: nails trimmed x 10
== END 2019-06-08 15:55 | disposition home health service (06) | DRG 194 ==
LOC: ED 16:42 → MEDSUR 06-04 00:47
PROVIDERS: ADMIT Internal Medicine; ATTEND Internal Medicine